=== PATIENT | male | born 1950 | race Caucasian/White ===

== ENCOUNTER 2017-07-06 18:22 | Inpatient (IN) | payer MEDICARE, SELFPAY ==
--- NOTE | 2017-07-03 14:02 | EKG12_ITS ---
Test Reason : PRE-OP Blood Pressure : / mmHG Vent. Rate : 135 BPM Atrial Rate : 135 BPM P-R Int : 120 ms QRS Dur : 072 ms QT Int : 308 ms P-R-T Axes : 018 029 018 degrees QTc Int : 462 ms Sinus tachycardia Otherwise normal ECG Confirmed by JENNIFER DE LEÓN ([id number]), assistant production editor RICHAR GONG ([id number]) on 07/07/2017 1:51:35 PM Referred By: Thomas Contrreas Confirmed By:JENNIFER DE LEÓN
[2017-07-06] VITALS (15 sets, daily range): BP systolic 113–171; BP diastolic 64–107; PULSE 106–118; RESP 15–20; TEMP 36.2–37.2; O2SAT 92–98; BMI 26.6
[2017-07-06 12:21] LABS: Prothrombin Time Fingerstick 16.7 SEC (11.9-14.4)
--- NOTE | 2017-07-06 13:35 | RAD_ITS ---
STUDY: X-RAY - LEFT WRIST REASON FOR EXAM: Male, 67 years old. Reduction of the comminuted fracture of the distal radial metaphysis. TECHNIQUE: 2 intraoperative view(s) of the wrist were obtained. COMPARISON: None. FINDINGS: 3 pins are seen transfixing the comminuted nondisplaced fracture of the distal radial metaphysis. There is good alignment. Avulsion fracture of the ulnar styloid. RAD/Wrist 2 Views IMPRESSION: Status post pinning of the comminuted distal radial fracture. There is good alignment. Electronically Signed: Omega Marie MD at 14:35 EST Tel [phone], Service support ,
[2017-07-06] MEDS: Cefazolin 1 GM/50 ML BAG IV (13:36)
--- NOTE | 2017-07-06 14:14 | PCM.DC.ORTHO ---
Discharge Diet: No Restrictions Discharge Activity: May Not Drive, May Shower - must cover to shower May shower in (days): 1 Ice area for (Minutes): 20 - Ice area for 20 minutes each hour while awake Keep extremity elevated above heart level: Operative Extremity, Left Arm Call your doctor if your incision/area has: Continuous Slow Oozing, Sudden Increased Bleeding, Increased Pain/ Swelling, Increased Redness, Foul Smelling Discharge Call your doctor if you observe: Fever of 101 or Higher, Coldness, Increased Pain, Numbness or Tingling, Change in Color Suture Line Care: Avoid Pulling/Pushing Cleanse incision/area with: Keep Dressing Clean & Dry Allergies/Adverse Reactions: Allergies No Known Allergies Allergy (Verified 07/03/17 11:24) Medications to take at Discharge Lisinopril 20 mg PO QHS 07/03/17 Lorazepam [Ativan] 0.5 mg PO DAILY 07/03/17 Metoprolol Tartrate 50 mg PO DAILY 07/03/17 Pantoprazole Sodium [Protonix] 20 mg PO DAILY 07/03/17 Paroxetine HCl 20 mg PO DAILY 07/03/17 Risperidone [Risperdal] 0.5 mg PO DAILY 07/03/17 Warfarin Sodium [Coumadin] 4 mg PO DAILY 07/03/17 Hydrocodone Bitart/Apap 5-325 [[place] 5/325] 1 - 2 tablet PO Q6H PRN PRN 7 Days #40 tablet 07/06/17 The following prescriptions were given: Hydrocodone Bitart/Apap 5-325 [[place] 5/325] 1 - 2 tablet PO Q6H PRN PRN 7 Days #40 tablet PRN Reason: Mild-Moderate (pain scale 1-5) Please Follow Up With: Thomas Contreras DO When: as scheduled
--- NOTE | 2017-07-06 14:18 | DCINST_ITS ---
Discharge Diet: No Restrictions Discharge Activity: May Not Drive, May Shower - must cover to shower May shower in (days): 1 Ice area for (Minutes): 20 - Ice area for 20 minutes each hour while awake Keep extremity elevated above heart level: Operative Extremity, Left Arm Call your doctor if your incision/area has: Continuous Slow Oozing, Sudden Increased Bleeding, Increased Pain/ Swelling, Increased Redness, Foul Smelling Discharge Call your doctor if you observe: Fever of 101 or Higher, Coldness, Increased Pain, Numbness or Tingling, Change in Color Suture Line Care: Avoid Pulling/Pushing Cleanse incision/area with: Keep Dressing Clean & Dry Allergies/Adverse Reactions: Allergies No Known Allergies Allergy (Verified 07/03/17 11:24) Medications to take at Discharge Lisinopril 20 mg PO QHS 07/03/17 Lorazepam [Ativan] 0.5 mg PO DAILY 07/03/17 Metoprolol Tartrate 50 mg PO DAILY 07/03/17 Pantoprazole Sodium [Protonix] 20 mg PO DAILY 07/03/17 Paroxetine HCl 20 mg PO DAILY 07/03/17 Risperidone [Risperdal] 0.5 mg PO DAILY 07/03/17 Warfarin Sodium [Coumadin] 4 mg PO DAILY 07/03/17 Hydrocodone Bitart/Apap 5-325 [[place] 5/325] 1 - 2 tablet PO Q6H PRN PRN 7 Days # 40 tablet 07/06/17 The following prescriptions were given: Hydrocodone Bitart/Apap 5-325 [[place] 5/325] 1 - 2 tablet PO Q6H PRN PRN 7 Days # 40 tablet PRN Reason: Mild-Moderate (pain scale 1-5) Please Follow Up With: Thomas Contreras DO When: as scheduled
--- NOTE | 2017-07-06 15:40 | CASEMGMT ---
Social Work Referral for possible correction placement/information. This social work coordinator meeting with patient and patient brotherRashaun and patient [id number], Moody Maciel in the hiv/aids care nurse. This social work coordinator introduced self as well as role within the [facility]. Patient giving this social work coordinator permission to speak with patient family. Patient family expressing concern on patient returning back home alone. Patient family reporting that patient has fallen several times within the past month. Patient family expressing concern of patient being able to meet own needs within the home as patient has not showered for a few weeks. Patient also expressing concern on returning back home. Patient reporting to be anxious about upcoming operation. Patient has been to the counseling center in the past per patient family for anxiety and schizohreniform diagnoses. Patient primary care physician is Dr. Machuca and patient has worked with social winnie Ramos at the [facility] in the past. Patient is currently on a waiting list at [facility] and has also looked into [facility] for possible placement. Patient and patient family open to this socia worker contacting Danette as [facility] to see what possible placement options there might be. This social work coordinator educating patient and family on Medicare criteria and that unless patient would have a 3 day stay patient will be transitioning to the correction under private pay. Patient and patient family aware of this and reporting that patient would be able to afford private pay for some time. This social work coordinator providing family with a list of private duty agencies and nursing homes within the [facility]. Patient has a lift alert and was getting ready to start Meals on Wheels. Patient brotherRashaun giving this social work coordinator a contact number of [phone] as the best number to call. Support given. Telephone call to Danette Castañeda. This social work coordinator making referral. Danette reporting to be aware of patient. This social work coordinator faxed face sheet and referred Danette to Rachel and Dr. Machuca for any further clinical information. Danette reporting that possible placement could happen within 3-4 days. This social work coordinator also giving Danette Rodney's contact information. Danette planning to contact Rashaun. This social work coordinator then following up with patient family on all above information and encouraged family to contact this social work coordinator back with any questions as Danette will be the main person to work with on placement. Patient family thanking this social work coordinator. Patient family planning to check in with patient within the community if placement does not happen today. PLAN: Possible discharge to community until placement is set up with [facility]. Isis BARRAZA, STOCKING INSPECTOR
--- NOTE | 2017-07-06 15:42 | EKG12_ITS ---
Test Reason : TACHY POST-OP Blood Pressure : / mmHG Vent. Rate : 111 BPM Atrial Rate : 111 BPM P-R Int : 124 ms QRS Dur : 074 ms QT Int : 344 ms P-R-T Axes : 030 038 011 degrees QTc Int : 467 ms Sinus tachycardia Otherwise normal ECG When compared with ECG of 03-JUL-2017 14:12, MANUAL COMPARISON REQUIRED, DATA IS UNCONFIRMED Confirmed by SONA MEJIA, JESSICA ([id number]), manager editorial RICHAR GONG ([id number]) on 07/08/2017 2:36:47 PM Referred By: Thomas Contreras Confirmed By:JESSICA MAGALLANES MD
[2017-07-06] MEDS: Lactated Ringers 1,000 ML 100 ML IV (17:06)
--- NOTE | 2017-07-06 17:35 | PCM.CONS.B ---
Problem List (1) HTN (hypertension) Status: Chronic (2) Fecal incontinence Status: Acute (3) Urine incontinence Status: Acute (4) History of venous thromboembolism Status: Chronic Comment: recurrent (5) Schizoaffective disorder Status: Chronic (6) GERD (gastroesophageal reflux disease) Status: Chronic (7) Hiatal hernia Status: Acute (8) Left wrist fracture Status: Acute (9) S/P ORIF (open reduction internal fixation) fracture Status: Acute (10) Leg weakness, bilateral Status: Acute - Consult Date of Consult: 07/06/[address] Contreras for medical management S/P ORIF of the R wrist PMH is significant for - HTN, GERD, DVT/PE (recurrent), schizoaffective disorder, hoarding, chronic anticoagulation with Warfarin for recurrent DVT's. 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 He has had a few falls recently but, denies syncope. He tells me that he does not have fecal or urinary urgency....he just does not realize he is going. Denies back pain or pain in the legs. No paresthesias of the legs. Does not use an assistive device at home. Denies vertigo, tinnitus, decreased hearing. He is apparently a hoarder and is unable to get around his house any longer and can not care for himself. He is afraid to stay in the house by himself. He has money stashed around the house in plastic bags and pockets and Pringles cans. Has been deteriorating recently at home per his brother and [id number]. alert and oriented X 3 and is drowsy due to anesthesia and pain medication The R cornea is cloudy Carotids have risk upstroke and good pulse volume with no carotid bruits There are no cervical nodes in the necks is flexible with no nuchal rigidity Lungs-clear to auscultation but diminished Heart-regular rate and rhythm, normal S1, normal S2, no murmur, no gallop, no rub Abdomen-soft, nontender, nondistended, normal bowel sounds present The skin over the lower extremities is very dry and the toenails are long and need attention The LUE is elevated and in a sling There is pitting edema of the RLE and a scar on the anterior medina about mid way between the knee and the ankle......has a hx of recurrent DVT's and has been off coumadin Non-focal neuro exam rectal was deferred until he is less groggy and better able to participate with the exam Impressions 1. Recent falls with no clear etiology. Tells me that he loses his balance, denies syncope. This is very concerning since he is only recently having bowel and bladder incontinence as well as loss of balance and he is not able to perform his ADL's. His brother has had to bathe him. Need to consider that he may have vertebral compression fractures, spinal cord dysfunction. 2. Fracture of the left wrist-status post ORIF by Dr. Contreras 07/06 3. Depression/schizoaffective disorder/anxiety-is followed at the counseling center 4. Chronic anticoagulation with warfarin for history of recurrent DVT/pulmonary emboli -has been off Coumadin for surgery today 5. Urinary and fecal incontinence associated with inability to get up out of a chair and take stairs -new 6. 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 GERD 8. Hypertension 9. Hoarding CBC, CMP, TSH, B12, ammonia, RPR, UA and urine culture. plain XRAYS of the LS spine and the pelvis Will need a CT or MRI of the LS spine......need to see the creat prior to ordering this testing PT/OT consults [facility] - he will require more than 2 nights to work up for etiology of the leg weakness and the incontinence Check a post void bladder residual Recheck lab in the AM CT brain with no contrast......mental status seems off and I do not know if we can contribute this entirely to anesthesia and pain medications Spent 45 minutes taking a history from the patient and his family and coordinating care. Code Visit Inpatient E&M: 20605 Subs Hosp L3
--- NOTE | 2017-07-06 17:38 | VDLE_ITS ---
Reason For Study: Hx of DVT - off Coumadin for surgery RIGHT LEFT GSV is normal. CFV is compressible, spontaneous, phasic, CFV is compressible, spontaneous, phasic, competent, and demonstrates normal competent and demonstrates normal augmentation. augmentation. FV is compressible, spontaneous, phasic, competent and demonstrates normal augmentation. POP V is compressible, spontaneous, phasic, competent and demonstrates normal augmentation. T/P Trunk is compressible. PTV is compressible. RT PerV is compressible. SSV is partially compressible with bright intraluminal echoes consistant with chronic clot. Procedure Exam performed portable in patient room. A preliminary report was called and/or faxed to [facility]. Interpretation Summary Deep veins of the right lower extremity are patent and compressible segmentally. There is no evidence of right lower extremity deep vein thrombosis. Valvular competence appears intact within the proximal deep venous system on the right . The right greater saphenous vein appears patent and compressible segmentally. Chronic venous changes are noted in the right small saphenous vein, which is partially compressible and demonstrates bright intraluminal echogenicity. Ordering Physician: Sujatha Huffman Referring Physician: Thomas Contreras Performed By: Lanie Silva RVT
--- NOTE | 2017-07-06 17:45 | CON.PCM_ITS ---
Problem List (1) HTN (hypertension) Status: Chronic (2) Fecal incontinence Status: Acute (3) Urine incontinence Status: Acute (4) History of venous thromboembolism Status: Chronic Comment: recurrent (5) Schizoaffective disorder Status: Chronic (6) GERD (gastroesophageal reflux disease) Status: Chronic (7) Hiatal hernia Status: Acute (8) Left wrist fracture Status: Acute (9) S/P ORIF (open reduction internal fixation) fracture Status: Acute (10) Leg weakness, bilateral Status: Acute - Consult Date of Consult: 07/06/[address] Contreras for medical management S/P ORIF of the R wrist PMH is significant for - HTN, GERD, DVT/PE (recurrent), schizoaffective disorder , hoarding, chronic anticoagulation with Warfarin for recurrent DVT's. 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 He has had a few falls recently but, denies syncope. He tells me that he does not have fecal or urinary urgency....he just does not realize he is going. Denies back pain or pain in the legs. No paresthesias of the legs. Does not use an assistive device at home. Denies vertigo, tinnitus, decreased hearing. He is apparently a hoarder and is unable to get around his house any longer and can not care for himself. He is afraid to stay in the house by himself. He has money stashed around the house in plastic bags and pockets and Pringles cans. Has been deteriorating recently at home per his brother and [id number]. alert and oriented X 3 and is drowsy due to anesthesia and pain medication The R cornea is cloudy Carotids have risk upstroke and good pulse volume with no carotid bruits There are no cervical nodes in the necks is flexible with no nuchal rigidity Lungs-clear to auscultation but diminished Heart-regular rate and rhythm, normal S1, normal S2, no murmur, no gallop, no rub Abdomen-soft, nontender, nondistended, normal bowel sounds present The skin over the lower extremities is very dry and the toenails are long and need attention The LUE is elevated and in a sling There is pitting edema of the RLE and a scar on the anterior medina about mid way between the knee and the ankle......has a hx of recurrent DVT's and has been off coumadin Non-focal neuro exam rectal was deferred until he is less groggy and better able to participate with the exam Impressions 1. Recent falls with no clear etiology. Tells me that he loses his balance, denies syncope. This is very concerning since he is only recently having bowel and bladder incontinence as well as loss of balance and he is not able to perform his ADL's. His brother has had to bathe him. Need to consider that he may have vertebral compression fractures, spinal cord dysfunction. 2. Fracture of the left wrist-status post ORIF by Dr. Contreras 07/06 3. Depression/schizoaffective disorder/anxiety-is followed at the counseling center 4. Chronic anticoagulation with warfarin for history of recurrent DVT/ pulmonary emboli -has been off Coumadin for surgery today 5. Urinary and fecal incontinence associated with inability to get up out of a chair and take stairs -new 6. 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 GERD 8. Hypertension 9. Hoarding CBC, CMP, TSH, B12, ammonia, RPR, UA and urine culture. plain XRAYS of the LS spine and the pelvis Will need a CT or MRI of the LS spine......need to see the creat prior to ordering this testing PT/OT consults Will need SNF [place] change the admission to inpt - he will require more than 2 nights to work up for etiology of the leg weakness and the incontinence Check a post void bladder residual Recheck lab in the AM CT brain with no contrast......mental status seems off and I do not know if we can contribute this entirely to anesthesia and pain medications Spent 45 minutes taking a history from the patient and his family and coordinating care. Code Visit Inpatient E&M: 61340 Subs Hosp L3
--- NOTE | 2017-07-06 17:56 | RAD_ITS ---
STUDY: X-RAY - PELVIS REASON FOR EXAM: Male, 67 years old. Fall TECHNIQUE: One view of the pelvis was obtained. COMPARISON: None. FINDINGS: There is a non-specific bowel gas pattern. Normal visualized soft tissue structures. Normal bilateral iliac wings, sacroiliac joints and visualized sacrum. Normal visualized bilateral superior and inferior pubic rami. Normal pubic symphysis. Normal ischial tuberosities. There are atherosclerotic vascular calcifications. There are osteoarthritic changes of the right femoral head with marginal osteophyte formation. There is osteoarthritic spur formation of the right acetabular rim. There is moderate articular joint space narrowing of the right hip. There are osteoarthritic changes of the left femoral head with marginal osteophyte formation. There is osteoarthritic spur formation of the left acetabular rim. There is severe articular joint space narrowing of the left hip. RAD/Pelvis 1 or 2 Views IMPRESSION: Degenerative findings of the hips. Electronically Signed: Rehan Ferrari MD at 21:07 EST , Service support ,
[2017-07-06 18:20] LABS: Absolute Lymphocyte Count 1.15 X10^3/ul (0.83-4.51); Basophil# 0.02 X10^3/uL; Basophil% 0.3 % (0-1); Eosinophil# 0.07 X10^3/uL; Hematocrit 45.1 % (40-54); Hemoglobin 15.1 g/dl (13.0-16.5); Lymphocyte # 1.15 X10^3/ul (4.0); Lymphocyte % 16.7 % (19-41); Mean Corp Hgb Conc 33.5 g/gl (32-36); Mean Corpuscular Hgb 30.1 pg (27.0-32.0); Mean Platelet Vol. 8.1 fl (6.2-12.0); Monocyte# 0.67 X10^3/uL; Monocyte% 9.7 % (0-10); Neutrophil # 4.97 X10^3/uL (2.7-7.7); Neutrophil % 72.2 % (47-70); Platelet Count 240 K/mm3 (150-450); RBC Distribution Width CV 14.3 % (11.6-14.6); RBC Distribution Width SD 46.2 fl (35.1-43.9); Red Blood Count 5.01 M/mm3 (4.6-6.2); White Blood Count 6.9 K/mm3 (4.4-11.0)
[2017-07-06 18:22] LABS: POSITIVE COUNT NO; POSITIVE DIFFERENTIAL NO; POSITIVE MORPHOLOGY NO
--- NOTE | 2017-07-06 18:25 | RAD_ITS ---
STUDY: X-RAY - LUMBAR SPINE REASON FOR EXAM: Male, 67 years old. Fall TECHNIQUE: 2 view(s) of the lumbar spine were obtained. COMPARISON: None FINDINGS: Normal lumbar lordosis. There is no substantial scoliosis. There is a normal alignment of the vertebrae. There is multilevel endplate spondylosis of the lumbar vertebrae. There is multi-level degenerative disc disease with multi-level disc space narrowing. There are atherosclerotic vascular calcifications. The soft tissue structures are unremarkable. RAD/Lumbar Spine 2 or 3 Views IMPRESSION: Degenerative changes of the spine, as detailed above. Electronically Signed: Rehan Ferrari MD at 21:05 EST , Service support ,
[2017-07-06 18:39] LABS: Vitamin B12 651 pg/mL (211-911)
[2017-07-06 18:40] LABS: ALB/GLOB Ratio 0.7 RATIO (0.9-2.4); AST(SGOT) 17 U/L (15-37); Alanine Aminotransfer ALT/SGPT 12 U/L (16-61); Albumin, Serum 2.8 g/dL (3.2-5.0); Alkaline Phosphatase 92 U/L (45-117); Anion Gap 7 (5-15); BUN 18 mg/dL (7-18); BUN/Creat Ratio 12.3 RATIO (10-20); Calcium,Total 7.8 mg/dL (8.5-10.1); Chloride 102 mmol/L (98-107); Creatinine, Serum 1.46 mg/dL (0.70-1.30); EST Glomerular Filtration Rate 51 mL/min (>60); Est Glom Filt Rate - Afr Amer 62 mL/min (>60); Estimated Creatinine Clearance 42.12 ml/min; Glucose 82 mg/dL (74-106); Potassium 4.6 mmol/L (3.5-5.1); Protein, Total 6.8 g/dL (6.4-8.2); Sodium Level 134 mmol/L (136-145); Thyroid Stim Hormone (TSH) 1.75 uIU/mL (0.358-3.74)
[2017-07-06] MEDS: Metoprolol Tartrate 50 MG Tablet PO (19:40)
--- NOTE | 2017-07-06 20:47 | CT_ITS ---
STUDY: CT BRAIN WITHOUT CONTRAST REASON FOR EXAM: Male, 67 years old. ALTERED MENTAL STATUS RADIATION DOSAGE (If Supplied By Facility): CTDIvol = ( 44.99 ) mGy, DLP = ( 1727.20 ) mGycm TECHNIQUE: Transaxial CT imaging of the brain was performed without administration of intravenous contrast material. COMPARISON: None. FINDINGS: Normal soft tissue structures. Normal calvarium. There are calcifications around the carotid artery. These are noted in the cavernous carotid arteries. There is mild cerebral atrophy with widening of the extra-axial spaces and ventricular dilatation. There are areas of decreased attenuation within the white matter tracts of the supratentorial brain, consistent with microvascular disease changes. Normal basal ganglia and thalami. Normal brainstem. There is mild cerebellar atrophy. There is no intracranial hemorrhage. There are no findings of an acute ischemic infarction. Normal visualized paranasal sinuses. CT/Brain/Head without Contrast IMPRESSION: Chronic involutional changes of the brain. There are no acute findings. Electronically Signed: Rehan Ferrari MD at 22:56 EST , Service support ,
[2017-07-06] MEDS: Heparin Injection 5,000 UNITS/ML Syringe 5000 UNITS SC (22:30)
[2017-07-06] MEDS: Nystatin Powder 15gm Bottle 1 APPLIC TOPICAL (22:31)
[2017-07-06] MEDS: Lisinopril 20 MG Tablet PO (22:32)
[2017-07-06 23:21] LABS: Bacteria 0 SEEN /hpf (None Seen); Mucous, Urine 0 SEEN /hpf (<or=2+); Red Blood Cells-Urine 0 SEEN /hpf (0-5)
[2017-07-06 23:32] LABS: Color, Urine Yellow (Yellow); Glucose, Dipstick Normal (Normal); Ketone-Dipstick 5 mg/dl (Negative); Leukocyte Esterase-Dipstick 500 /ul (Negative); Nitrite-Dipstick Negative (Negative); Occult Blood-Urine Negative /ul (Negative); Protein-Dipstick 15 mg/dl (Negative); Urine Bilirubin Dipstick Negative (Negative); Urine Clarity Clear (Clear); Urine Urobilinogen Normal (Normal)
[2017-07-07 00:28] LABS: Hyaline Cast 0-5 SEEN /lpf (0-5); Squamous Epithelial Cells - UA 0-5 SEEN /hpf (0-5); White Blood Cells 10-25 SEEN /hpf (0-5)
[2017-07-07] MEDS: 0.9% Normal Saline 1,000 ML 75 ML IV ×2 (02:40→14:33)
[2017-07-07 02:42] VITALS: BP 122/73; PULSE 81; RESP 16; TEMP 37.2; O2SAT 93
[2017-07-07] MEDS: Heparin Injection 5,000 UNITS/ML Syringe 5000 UNITS SC ×3 (06:24→20:39)
--- NOTE | 2017-07-07 06:54 | PCM.PN.BLA ---
Progress Note Subjective: Patient resting comfortably in bed. He has complaints of minimal discomfort. Patient denies any chest pain or shortness of breath Objective: Vital signs, temp 98.9 pulse 81 blood pressure 122/73 oxygen saturation 93 on room air Splint is intact and in place. Sensation is preserved. Assessment: Postop day 1 closed reduction with pinning of left distal radius Tachycardia Hypotension Plan: Patient appears to be doing much better in terms of his vital signs. His pain is reasonably controlled. I am going to discharge him home today with follow-up as previously planned. Patient has home-going instructions as well as pain medication that was previously sent to his pharmacy.
[2017-07-07 09:05] VITALS: BP 105/55; PULSE 80; PULSE 83; RESP 20; TEMP 36.8; O2SAT 91
[2017-07-07 09:20] VITALS: PULSE 83
[2017-07-07] MEDS: Pantoprazole Sodium 20 MG Tablet PO (09:20)
[2017-07-07] MEDS: Metoprolol Tartrate 50 MG Tablet PO (09:20)
[2017-07-07] MEDS: RisperiDONE 0.5 MG Tablet PO (09:21)
[2017-07-07] MEDS: Nystatin Powder 15gm Bottle 1 APPLIC TOPICAL ×2 (09:21→20:40)
--- NOTE | 2017-07-07 11:19 | CASEMGMT ---
Addendum entered by Isis Warren 07/07/17 11:23: Therapy notes faxed to [facility] as evaluations are now entered. Original Note: Social Work Meeting with patient in room as patient is now inpatient status. Patient reporting to still feel as if patient is unable to discharge home alone and is interested in placement to [facility]. Support given. This socia worker then speaking with Dr. Huffman. Dr. Huffman reporting that patient would benefit from medical management/oversight for a few days within the hospital and that patient may obtain a three day stay. Telephone call to patient family, Rashaun and Moody (brother and [id number]). Both are agreeable to above plan and are aware that [facility] will only be covered by Medicare if patient indeed has a 3 day stay. Support given. Telephone call to Danette at [facility]. This family welfare social work professor updating Danette on patient status on inpatient and then faxing clinical information. Pending therapy evaluation at this time. Will fax therapy notes when obtained. Will continue to follow. PLAN: Discharge to [facility] skilled pending a three day hospital stay. Isis BARRAZA, WELDING EQUIPMENT REPAIRER
--- NOTE | 2017-07-07 11:22 | PCM.OPRPT ---
Report of Operation Date of Procedure: 07/06/17 Pre-Operative Diagnosis: distal radius fracture left Post-Operative Diagnosis: same Surgery/Procedure Performed:: closed reduction with percutaneous pinning of left distal radius Description of Surgical Findings:: displaced distal radius fracture Type of Anesthesia:: General Anesthesiologist: Leonel Zarco Estimated Blood Loss (mL): 5 ml Fluids Replaced: see anesthesia report Description of Procedure: implants: 0.054 in k wire x3 procedure description: idalia was greeted in the pre-op area. His left wrist was marked with surgical marker. Pre-op abx were given and he was taken to OR suite 4 in a stable condition. After adequate anesthesia was obtained and airway was secured his arm was prepped and draped. Surgical timeout was performed. Under fluoro imaging an closed reduction was performed and the fracture alignment was improved with ligamentotaxis. With this held in a redued fashion 2 kwires were placed in the radial styloid follwoed by a 3rd pin in the dorsal lip of the radius secured in the volar cortex. Improcved alignment was obtained. The wires were then bent and trimmed at the skin. A well padded volar splint was applied. He was taken to PACU in stable condtion. - Complications none - Admit VTE Documentation VTE Present on Admission: No VTE Mechan Device Prophylaxis: None Reason prophylaxis not ordered:: Procedure Not Indicated
[2017-07-07 14:38] VITALS: BP 123/70; PULSE 74; RESP 18; TEMP 37.1; O2SAT 95
[2017-07-07] MEDS: HYDROcodone Bitartrate/Apap 5/325 Tablet PO (14:54)
--- NOTE | 2017-07-07 15:31 | CHAPLAIN ---
Type of Pastoral Visit _x__ Initial Visit ___ Follow-up Visit ___ On-call Visit ___ General Patient Visit ___ Spiritual Assessment ___ Family Conference ___ Bereavement ___ Rapid Response ___ Code Blue ___ Other (describe below) Pastoral Care Referral From _x__ Patient ___ Family ___ Nurse ___ Physician ___ Audio Visual Manager ___ Landscape Architect ___ Other (describe below) Sacrament/Intervention _x__ Active listening ___ Anointing ___ Methodist ___ Bereavement ___ Communion ___ Loyda exploration ___ _x__ Life review _x__ Prayer ___ Reconciliation ___ Sacrament of Sick _x__ Supportive presence ___ Wedding ___ Other (describe below) Pastoral Comments
[2017-07-07 20:21] VITALS: BP 119/74; PULSE 75; RESP 16; TEMP 36.6; O2SAT 95
--- NOTE | 2017-07-07 20:23 | PCM.PROGNOTE ---
Patient Problems: Active and Suspected Problems Fecal incontinence (Acute) Urine incontinence (Acute) Hiatal hernia (Acute) Left wrist fracture (Acute) S/P ORIF (open reduction internal fixation) fracture (Acute) Leg weakness, bilateral (Acute) Subjective: Afebrile with stable vital signs. Pulse ox is 95% on room air. All lab was personally reviewed. Sodium was mildly decreased at 134 and the creatinine is 1.46 with a BUN of 18. LFTs are unremarkable. The albumin is mildly decreased at 2.8. B12 and TSH are within normal limits. UA had 10-25 WBCs but no bacteria. There were 0-5 hyaline casts. Urine culture is pending. CT brain showed cortical atrophy with no acute findings. LS spine x-ray showed degenerative changes of the spine multiple levels. There was no substantial scoliosis. Pelvic x-ray showed no fracture. He has been to the BR to urinate today but he has urgency and he does not feel as though he is completely emptying his bladder. He denies dysuria. He ambulated 200 ft with PT today but is still having balance issues because the LUE is in a sling.....PT and OT notes reviewed. - Physical Exam General: Alert, Cooperative, No apparent distress, - - He is pleasant and appropriate and has been interavctive with staff HEENT: Atraumatic, - - r eye is cloudy and bulges somewhat Oral: Moist Mucosa, No Gingival or Mucosal Lesions/ Ulcerations Neck: Supple Lungs: Clear to auscultation, Diminished Cardiovascular: Regular rate, Regular Rhythm, Normal S1, Normal S2, No Gallop Abdomen: Bowel Sounds Present, Soft, Non Tender, Non-Distended Extremities: Edema - of the left hand and fingers Skin: No rashes, No breakdown Psych/Mental Status: Appropriate Vital Signs Temp Pulse Resp BP Pulse Ox 97.8 F 75 16 119/74 95 07/07/17 20:21 07/07/17 20:21 07/07/17 20:21 07/07/17 20:21 07/07/17 20:21 Oxygen Flow Rate 2 Oxygen Delivery Method Room Air Weight: 160 lb 4.417 oz Body Mass Index (BMI) 26.6 Intake and Output for Last 24 Hours 07/05/17 07/06/17 07/07/17 23:59 23:59 23:59 Intake Total 2205 / 2205 2720 / 2720 Output Total 550 / 550 Balance 2204 / 2204 2170 / 2170 Laboratory Tests Past 24 Hrs 07/06/17 22:29 Urine Color Yellow Urine Clarity Clear Urine pH 5.0 Ur Specific [place] 1.020 Urine Protein 15 H Urine Glucose (UA) Normal Urine Ketones 5 H Urine Occult Blood Negative Urine Nitrite Negative Urine Bilirubin Negative Urine Urobilinogen Normal Ur Leukocyte Esterase 500 H Urine RBC 0 SEEN Urine WBC 10-25 SEEN Ur Squamous Epith Cells 0-5 SEEN Urine Bacteria 0 SEEN Hyaline Casts 0-5 SEEN Urine Mucus 0 SEEN Assessment/Plan Active and Suspected Problems Fecal incontinence (Acute) Urine incontinence (Acute) Hiatal hernia (Acute) Left wrist fracture (Acute) S/P ORIF (open reduction internal fixation) fracture (Acute) Leg weakness, bilateral (Acute) Impressions 1. Recent falls with no clear etiology. Tells me that he loses his balance, denies syncope. This is very concerning since he is only recently having bowel and bladder incontinence as well as loss of balance and he is not able to perform his ADL's. His brother has had to bathe him. Need to consider that he may have vertebral compression fractures, spinal cord dysfunction. Will obtain a post void residual and if it is > 200 will get an MRI of the LS spine to r/o neurogenic bladder due to cord compression 2. Fracture of the left wrist-status post ORIF by Dr. Contreras 07/06 3. Depression/schizoaffective disorder/anxiety-is followed at the counseling center 4. Chronic anticoagulation with warfarin for history of recurrent DVT/pulmonary emboli -has been off Coumadin for surgery today 5. Urinary and fecal incontinence associated with inability to get up out of a chair and take stairs -new 6. 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 GERD 8. Hypertension 9. Hoarding 10. elevated creat Restart Warfarin.....no need to bridge at this time Check a post void residual recheck a BMP and CBC in the AM continue PT/OT. His house is so cluttered there is no room for him to walk safely. His brother and [id number] are working and cleaning out his house. He will be accepted at [facility] when he is ready for [place]. I think he will benefit greatly from being with other people and having someone to talk with. he has been isolating in his house and not getting out or even moving around much. he is deconditioned and has had multiple falls recently continue Heparin for DVT prophylaxis for now Code Visit Inpatient E&M: 08260 Subs Hosp L2
[2017-07-07 20:24] VITALS: PULSE 75; RESP 16; O2SAT 95
--- NOTE | 2017-07-07 20:34 | PN_ITS ---
Patient Problems: Active and Suspected Problems Fecal incontinence (Acute) Urine incontinence (Acute) Hiatal hernia (Acute) Left wrist fracture (Acute) S/P ORIF (open reduction internal fixation) fracture (Acute) Leg weakness, bilateral (Acute) Subjective: Afebrile with stable vital signs. Pulse ox is 95% on room air. All lab was personally reviewed. Sodium was mildly decreased at 134 and the creatinine is 1.46 with a BUN of 18. LFTs are unremarkable. The albumin is mildly decreased at 2.8. B12 and TSH are within normal limits. UA had 10-25 WBCs but no bacteria. There were 0-5 hyaline casts. Urine culture is pending. CT brain showed cortical atrophy with no acute findings. LS spine x-ray showed degenerative changes of the spine multiple levels. There was no substantial scoliosis. Pelvic x-ray showed no fracture. He has been to the BR to urinate today but he has urgency and he does not feel as though he is completely emptying his bladder. He denies dysuria. He ambulated 200 ft with PT today but is still having balance issues because the LUE is in a sling.....PT and OT notes reviewed. - Physical Exam General: Alert, Cooperative, No apparent distress, - - He is pleasant and appropriate and has been interavctive with staff HEENT: Atraumatic, - - r eye is cloudy and bulges somewhat Oral: Moist Mucosa, No Gingival or Mucosal Lesions/ Ulcerations Neck: Supple Lungs: Clear to auscultation, Diminished Cardiovascular: Regular rate, Regular Rhythm, Normal S1, Normal S2, No Gallop Abdomen: Bowel Sounds Present, Soft, Non Tender, Non-Distended Extremities: Edema - of the left hand and fingers Skin: No rashes, No breakdown Psych/Mental Status: Appropriate Vital Signs Temp Pulse Resp BP Pulse Ox 97.8 F 75 16 119/74 95 07/07/17 20:21 07/07/17 20:21 07/07/17 20:21 07/07/17 20:21 07/07/17 20:21 Oxygen Flow Rate 2 Oxygen Delivery Method Room Air Weight: 160 lb 4.417 oz Body Mass Index (BMI) 26.6 Intake and Output for Last 24 Hours 07/05/17 07/06/17 07/07/17 23:59 23:59 23:59 Intake Total 2205 / 2205 2720 / 2720 Output Total 550 / 550 Balance 2204 / 2204 2170 / 2170 Laboratory Tests Past 24 Hrs 07/06/17 22:29 Urine Color Yellow Urine Clarity Clear Urine pH 5.0 Ur Specific [place] 1.020 Urine Protein 15 H Urine Glucose (UA) Normal Urine Ketones 5 H Urine Occult Blood Negative Urine Nitrite Negative Urine Bilirubin Negative Urine Urobilinogen Normal Ur Leukocyte Esterase 500 H Urine RBC 0 SEEN Urine WBC 10-25 SEEN Ur Squamous Epith Cells 0-5 SEEN Urine Bacteria 0 SEEN Hyaline Casts 0-5 SEEN Urine Mucus 0 SEEN Assessment/Plan Active and Suspected Problems Fecal incontinence (Acute) Urine incontinence (Acute) Hiatal hernia (Acute) Left wrist fracture (Acute) S/P ORIF (open reduction internal fixation) fracture (Acute) Leg weakness, bilateral (Acute) Impressions 1. Recent falls with no clear etiology. Tells me that he loses his balance, denies syncope. This is very concerning since he is only recently having bowel and bladder incontinence as well as loss of balance and he is not able to perform his ADL's. His brother has had to bathe him. Need to consider that he may have vertebral compression fractures, spinal cord dysfunction. Will obtain a post void residual and if it is > 200 will get an MRI of the LS spine to r/o neurogenic bladder due to cord compression 2. Fracture of the left wrist-status post ORIF by Dr. Contreras 07/06 3. Depression/schizoaffective disorder/anxiety-is followed at the counseling center 4. Chronic anticoagulation with warfarin for history of recurrent DVT/ pulmonary emboli -has been off Coumadin for surgery today 5. Urinary and fecal incontinence associated with inability to get up out of a chair and take stairs -new 6. 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 GERD 8. Hypertension 9. Hoarding 10. elevated creat Restart Warfarin.....no need to bridge at this time Check a post void residual recheck a BMP and CBC in the AM continue PT/OT. His house is so cluttered there is no room for him to walk safely. His brother and [id number] are working and cleaning out his house. He will be accepted at [facility] when he is ready for [place]. I think he will benefit greatly from being with other people and having someone to talk with. he has been isolating in his house and not getting out or even moving around much. he is deconditioned and has had multiple falls recently continue Heparin for DVT prophylaxis for now Code Visit Inpatient E&M: 74545 Subs Hosp L2
[2017-07-07] MEDS: Lisinopril 20 MG Tablet PO (20:39)
[2017-07-07] MEDS: Tamsulosin HCl 0.4 MG Capsule PO (21:00)
[2017-07-08] VITALS (11 sets, daily range): BP systolic 134–169; BP diastolic 80–104; PULSE 70–90; RESP 18; TEMP 36.6–37.2; O2SAT 94–99
[2017-07-08] MEDS: Heparin Injection 5,000 UNITS/ML Syringe 5000 UNITS SC ×3 (06:08→22:27)
[2017-07-08 06:48] LABS: Hematocrit 40.9 % (40-54); Hemoglobin 13.5 g/dl (13.0-16.5); Mean Corpuscular Hgb 30.1 pg (27.0-32.0); Mean Corpuscular Volume 91.1 fL (80-94); Mean Platelet Vol. 8.6 fl (6.2-12.0); Platelet Count 202 K/mm3 (150-450); RBC Distribution Width CV 13.9 % (11.6-14.6); RBC Distribution Width SD 45.5 fl (35.1-43.9); Red Blood Count 4.49 M/mm3 (4.6-6.2); White Blood Count 4.4 K/mm3 (4.4-11.0)
[2017-07-08 06:56] LABS: Scan Indicated on CBC? Y/N NO
[2017-07-08 07:19] LABS: Anion Gap 7 (5-15); BUN 18 mg/dL (7-18); Calcium,Total 7.9 mg/dL (8.5-10.1); Chloride 102 mmol/L (98-107); Creatinine, Serum 1.29 mg/dL (0.70-1.30); EST Glomerular Filtration Rate 59 mL/min (>60); Est Glom Filt Rate - Afr Amer 71 mL/min (>60); Estimated Creatinine Clearance 47.67 ml/min; Glucose 86 mg/dL (74-106); PSA,Total - Annual Screen 3.07 ng/mL (0.00-4.00); Potassium 4.2 mmol/L (3.5-5.1); Sodium Level 136 mmol/L (136-145)
[2017-07-08] MEDS: Nystatin Powder 15gm Bottle 1 APPLIC TOPICAL ×2 (08:49→22:26)
[2017-07-08] MEDS: Metoprolol Tartrate 50 MG Tablet PO (08:49)
[2017-07-08] MEDS: RisperiDONE 0.5 MG Tablet PO (08:50)
[2017-07-08] MEDS: Pantoprazole Sodium 20 MG Tablet PO (08:50)
--- NOTE | 2017-07-08 08:59 | PCM.PN.ORT ---
Patient Problems: Active and Suspected Problems Fecal incontinence (Acute) Urine incontinence (Acute) Hiatal hernia (Acute) Left wrist fracture (Acute) S/P ORIF (open reduction internal fixation) fracture (Acute) Leg weakness, bilateral (Acute) Subjective: Patient resting comfortably in bed today. He has been out of bed with therapy. He complains of dizziness at times. Objective: Splint is clean and dry and in place. Neurovascularly intact. Capillary refills less than 2 seconds - Physical Exam Vital Signs Temp Pulse Resp BP Pulse Ox 98.3 F 77 18 147/93 H 97 07/08/17 08:45 07/08/17 08:49 07/08/17 08:45 07/08/17 08:45 07/08/17 08:45 Oxygen Flow Rate 2 Oxygen Delivery Method Room Air Weight: 160 lb 4.417 oz Body Mass Index (BMI) 26.6 Intake and Output for Last 24 Hours 07/06/17 07/07/17 07/08/17 23:59 23:59 23:59 Intake Total 2205 / 2205 2720 / 2720 727 / 727 Output Total 750 / 750 1075 / 1075 Balance 2205 / 2205 1969 / 1969 -348 / -348 Laboratory Tests Past 24 Hrs 07/08/17 07/08/17 06:24 06:24 WBC 4.4 RBC 4.49 L Hgb 13.5 Hct 40.9 MCV 91.1 MCH 30.1 MCHC 33.0 RDW 13.9 RDW Differential 45.5 H Plt Count 202 MPV 8.6 Sodium 136 Potassium 4.2 Chloride 102 Carbon Dioxide 27.0 Anion Gap 7 BUN 18 Creatinine 1.29 Estim Creat Clear Calc 47.67 Est GFR (MDRD) Af Amer 71 Est GFR (MDRD) Non-Af 59 L BUN/Creatinine Ratio 14.0 Glucose 86 Calcium 7.9 L PSA Screen 3.07 Assessment/Plan Active and Suspected Problems Fecal incontinence (Acute) Urine incontinence (Acute) Hiatal hernia (Acute) Left wrist fracture (Acute) S/P ORIF (open reduction internal fixation) fracture (Acute) Leg weakness, bilateral (Acute) Postop day 2 closed reduction and percutaneous pin fixation of left distal radius Spondylosis lumbar spine Osteoarthritis bilateral hips I personally reviewed patient's x-rays of the lumbar spine. This reveals degenerative changes consistent with spondylosis. Also reviewed the pelvis x-ray which reveals osteoarthritic changes noted of both hip joints. Appreciate the assistance of the hospitalist as apparently patient is having some incontinence issues as well as continued dizziness and loss of balance issues. I certainly feel that it is prudent to work this up in order to determine whether or not there is a musculoskeletal or neurologic issue contributing to these. Patient is stable in terms of the wrist fracture. I will defer to the hospitalist in terms of when they feel that patient would be safe for discharge. It appears that the patient will be going to senior living facility which I certainly feel is appropriate given his multiple medical issues and comorbidities
--- NOTE | 2017-07-08 09:03 | PN.ORTHO_ITS ---
Patient Problems: Active and Suspected Problems Fecal incontinence (Acute) Urine incontinence (Acute) Hiatal hernia (Acute) Left wrist fracture (Acute) S/P ORIF (open reduction internal fixation) fracture (Acute) Leg weakness, bilateral (Acute) Subjective: Patient resting comfortably in bed today. He has been out of bed with therapy. He complains of dizziness at times. Objective: Splint is clean and dry and in place. Neurovascularly intact. Capillary refills less than 2 seconds - Physical Exam Vital Signs Temp Pulse Resp BP Pulse Ox 98.3 F 77 18 147/93 H 97 07/08/17 08:45 07/08/17 08:49 07/08/17 08:45 07/08/17 08:45 07/08/17 08:45 Oxygen Flow Rate 2 Oxygen Delivery Method Room Air Weight: 160 lb 4.417 oz Body Mass Index (BMI) 26.6 Intake and Output for Last 24 Hours 07/06/17 07/07/17 07/08/17 23:59 23:59 23:59 Intake Total 2205 / 2205 2720 / 2720 727 / 727 Output Total 750 / 750 1075 / 1075 Balance 2205 / 2205 1969 / 1969 -348 / -348 Laboratory Tests Past 24 Hrs 07/08/17 07/08/17 06:24 06:24 WBC 4.4 RBC 4.49 L Hgb 13.5 Hct 40.9 MCV 91.1 MCH 30.1 MCHC 33.0 RDW 13.9 RDW Differential 45.5 H Plt Count 202 MPV 8.6 Sodium 136 Potassium 4.2 Chloride 102 Carbon Dioxide 27.0 Anion Gap 7 BUN 18 Creatinine 1.29 Estim Creat Clear Calc 47.67 Est GFR (MDRD) Af Amer 71 Est GFR (MDRD) Non-Af 59 L BUN/Creatinine Ratio 14.0 Glucose 86 Calcium 7.9 L PSA Screen 3.07 Assessment/Plan Active and Suspected Problems Fecal incontinence (Acute) Urine incontinence (Acute) Hiatal hernia (Acute) Left wrist fracture (Acute) S/P ORIF (open reduction internal fixation) fracture (Acute) Leg weakness, bilateral (Acute) Postop day 2 closed reduction and percutaneous pin fixation of left distal radius Spondylosis lumbar spine Osteoarthritis bilateral hips I personally reviewed patient's x-rays of the lumbar spine. This reveals degenerative changes consistent with spondylosis. Also reviewed the pelvis x- ray which reveals osteoarthritic changes noted of both hip joints. Appreciate the assistance of the hospitalist as apparently patient is having some incontinence issues as well as continued dizziness and loss of balance issues. I certainly feel that it is prudent to work this up in order to determine whether or not there is a musculoskeletal or neurologic issue contributing to these. Patient is stable in terms of the wrist fracture. I will defer to the hospitalist in terms of when they feel that patient would be safe for discharge. It appears that the patient will be going to halfway facility which I certainly feel is appropriate given his multiple medical issues and comorbidities
--- NOTE | 2017-07-08 13:59 | MRI_ITS ---
STUDY: MRI LUMBAR SPINE WITHOUT CONTRAST REASON FOR EXAM: Male, 67 years old. The patient is experiencing urinary/fecal incontinence with leg weakness. Evaluate for cord compression. TECHNIQUE: Standardized fat and water weighted pulse sequences were obtained in the sagittal and axial planes. COMPARISON: X-RAY LUMBAR SPINE-July 06, 2017 FINDINGS: T12-L1: (Imaged only in the sagittal plane). There is disc desiccation, mild loss of the disc height anteriorly with anterior endplate spondylosis and minimal posterior annular bulging. Normal central canal and intervertebral neural foramina. There is an abundance of CSF surrounding the lower thoracic cord without impingement. There is an exaggerated lumbar lordosis. There is no substantial scoliosis. Normal conus medullaris that terminates at the superior endplate of the L2 vertebra. L1-2: There is disc desiccation, preservation disc height with prominent anterior endplate spondylotic spur formation. There is minimal annular bulging. Normal central canal and intervertebral neural foramina. L2-3: There is disc desiccation, preservation disc height without disc displacement. Normal central canal with widely patent intervertebral neural foramina. L3-4: There is disc desiccation, mild loss of the disc height posteriorly, anterior endplate spondylosis with a large central canal widely patent intervertebral neural foramina. L4-5: There is disc desiccation, mild loss of the disc height posteriorly with posterior annular bulging. There is mild anterior endplate spondylosis. This mild facet arthrosis. Normal central canal and intervertebral neural foramina. L5-S1: There is disc desiccation, moderate loss of the disc height posteriorly with a small posterior central disc protrusion (axial T2 series 5, image 3). The disc protrusion measures approximately 3 x 11 mm (AP X transverse), producing minimal thecal sac flattening but without radicular impingement. There is a large central canal with large bilateral intervertebral neural foramina. There is a 13 mm vertebral body hemangioma (sagittal T2 series 2, image 8). Normal visualized sacral ala. Normal visualized paraspinous soft tissue structures. MRI/Spine Lumbar (Routine) IMPRESSION: 1. Exaggerated lumbar lordosis. 2. Multilevel degenerative disc disease and endplate spondylosis. 3. Large central canal all levels without thoracic cord impingement. 4. L5-S1 small posterior disc protrusion producing minimal thecal sac flattening without radicular impingement. 5. T11 vertebral body hemangioma. Electronically Signed: Ronny Mclean DO at 15:25 EST Tel , Service support ,
[2017-07-08] MEDS: Tamsulosin HCl 0.4 MG Capsule PO (17:19)
--- NOTE | 2017-07-08 20:40 | PN_ITS ---
Subjective: Afebrile, vital signs are stable. He is 97% saturated on room air. Creatinine has improved and is 1.29 today, down from 1.46 on 226. CBC is unremarkable. PSA is normal at 3.07. Post void residuals are all less than 200. MRI of the spine shows multilevel degenerative disc disease and endplate spondylosis. There is a large central canal at all levels without cord compression. There is a small posterior disc protrusion at L5-S1 producing minimal thecal sac flattening with no radicular impingement. Etiology of the urine incontinence is unclear. Reviewed the CTB and he has some ventricular dilatation but not out of line with his age......ambulated without an AD today? - Physical Exam General: Alert, Oriented x3, Cooperative HEENT: Atraumatic Oral: Moist Mucosa Neck: Supple Lungs: Clear to auscultation, Diminished Cardiovascular: Regular rate, Regular Rhythm, Normal S1, Normal S2, No Gallop Abdomen: Bowel Sounds Present, Soft, Non Tender, Non-Distended Extremities: No cyanosis, No edema, No Calf Tenderness, - - he has good feeling in the fingers of the Left hand....they are still fairly swollen Skin: No rashes, No breakdown Psych/Mental Status: Appropriate Vital Signs Temp Pulse Resp BP Pulse Ox 98.0 F 73 18 144/81 H 97 07/08/17 16:17 07/08/17 16:17 07/08/17 16:17 07/08/17 16:17 07/08/17 16:17 Oxygen Flow Rate 2 Oxygen Delivery Method Room Air Weight: 160 lb 4.417 oz Body Mass Index (BMI) 26.6 Intake and Output for Last 24 Hours 07/06/17 07/07/17 07/08/17 23:59 23:59 23:59 Intake Total 2205 / 2205 2720 / 2720 727 / 727 Output Total 750 / 750 1075 / 1075 Balance 2205 / 2205 1969 / 1969 -348 / -348 Laboratory Tests Past 24 Hrs 07/08/17 07/08/17 06:24 06:24 WBC 4.4 RBC 4.49 L Hgb 13.5 Hct 40.9 MCV 91.1 MCH 30.1 MCHC 33.0 RDW 13.9 RDW Differential 45.5 H Plt Count 202 MPV 8.6 Sodium 136 Potassium 4.2 Chloride 102 Carbon Dioxide 27.0 Anion Gap 7 BUN 18 Creatinine 1.29 Estim Creat Clear Calc 47.67 Est GFR (MDRD) Af Amer 71 Est GFR (MDRD) Non-Af 59 L BUN/Creatinine Ratio 14.0 Glucose 86 Calcium 7.9 L PSA Screen 3.07 Assessment/Plan Impressions 1. Recent falls with no clear etiology. Tells me that he loses his balance, denies syncope. This is very concerning since he is only recently having bowel and bladder incontinence as well as loss of balance and he is not able to perform his ADL's. His brother has had to bathe him. Need to consider that he may have vertebral compression fractures, spinal cord dysfunction. Will obtain a post void residual and if it is > 200 will get an MRI of the LS spine to r/o neurogenic bladder due to cord compression 2. Fracture of the left wrist-status post ORIF by Dr. Contreras 07/06 3. Depression/schizoaffective disorder/anxiety-is followed at the counseling center 4. Chronic anticoagulation with warfarin for history of recurrent DVT/ pulmonary emboli -has been off Coumadin for surgery today 5. Urinary and fecal incontinence associated with inability to get up out of a chair and take stairs -new 6. 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 GERD 8. Hypertension 9. Hoarding 10. elevated creat post void residuals are all less than 150 reason for the urinary urgency is not clear. await the results of the MRI of the spine......Will treat for BPH. Code Visit Inpatient E&M: [id number] Subs Hosp L2
[2017-07-08] MEDS: Menthol/Lanolin/Calamine/Znox 113 GM Tube 1 APPLIC TOPICAL (22:26)
[2017-07-08] MEDS: Lisinopril 20 MG Tablet PO (22:27)
[2017-07-09] VITALS (7 sets, daily range): BP systolic 80–182; BP diastolic 46–96; PULSE 84–87; RESP 16–18; TEMP 36.5–37.1; O2SAT 94–97
[2017-07-09] MEDS: Heparin Injection 5,000 UNITS/ML Syringe 5000 UNITS SC (05:57)
[2017-07-09 06:36] LABS: International Normalized Ratio 1.2; Prothrombin Time (Protime)PT. 15.1 SECONDS (11.7-14.9)
[2017-07-09 07:09] LABS: Partial Thromboplast Time 120.6 Seconds (24.1-36.2)
[2017-07-09] MEDS: Metoprolol Tartrate 50 MG Tablet PO (07:38)
[2017-07-09] MEDS: Pantoprazole Sodium 20 MG Tablet PO (07:39)
[2017-07-09] MEDS: RisperiDONE 0.5 MG Tablet PO (07:39)
[2017-07-09] MEDS: Menthol/Lanolin/Calamine/Znox 113 GM Tube 1 APPLIC TOPICAL (07:40)
[2017-07-09] MEDS: Nystatin Powder 15gm Bottle 1 APPLIC TOPICAL (07:40)
--- NOTE | 2017-07-09 09:05 | PCM.PN.ORT ---
Patient Problems: Active and Suspected Problems Fecal incontinence (Acute) Urine incontinence (Acute) Hiatal hernia (Acute) Left wrist fracture (Acute) S/P ORIF (open reduction internal fixation) fracture (Acute) Leg weakness, bilateral (Acute) Subjective: The patient was sitting in bed upon examination. Patient denies any chest pain, shortness of breath, dizziness, lightheadedness, nausea or vomiting. Pain is controlled on medications. No adverse overnight events. Plan for the patient is for discharge to residential facility, patient plans on going to [facility] in [place]. Medicine has been consulted for medical comorbidities. Objective: Splint and dressing are clean and intact without any breakthrough bleeding Positive swelling to fingers No pain on left elbow, full range of motion left elbow Sensation intact to axillary, radial, median, and ulnar distribution Motor intact to AIN, PIN, and ulnar nerve - Physical Exam Vital Signs Temp Pulse Resp BP Pulse Ox 98.1 F 87 16 182/96 H 97 07/09/17 07:29 07/09/17 07:38 07/09/17 07:29 07/09/17 07:29 07/09/17 07:29 Oxygen Flow Rate 2 Oxygen Delivery Method Room Air Weight: 72.7 kg Body Mass Index (BMI) 26.6 Intake and Output for Last 24 Hours 07/07/17 07/08/17 07/09/17 23:59 23:59 23:59 Intake Total 2720 / 2720 727 / 727 520 / 520 Output Total 750 / 750 1075 / 1075 150 / 150 Balance 1970 / 1970 -348 / -348 370 / 370 Laboratory Tests Past 24 Hrs 07/09/17 06:18 PT 15.1 H INR 1.2 APTT 120.6 H* Assessment/Plan Active and Suspected Problems Fecal incontinence (Acute) Urine incontinence (Acute) Hiatal hernia (Acute) Left wrist fracture (Acute) S/P ORIF (open reduction internal fixation) fracture (Acute) Leg weakness, bilateral (Acute) 1. S/P closed reduction with percutaneous pinning left distal radius POD #3 2. Continue Pain Medications: Go 3. DVT Prophylaxis: Patient is currently back on his warfarin due to history of blood clot and pulmonary embolism 4. PT/OT: Nonweightbearing left upper extremity, ice and elevation 5. Continue postoperative medical management per medicine: Okay for discharge when medically cleared 6. Encouraged Incentive Spirometry 7. Disposition: Orthopedically stable, plan will be for possible discharge to residential facility today if medically cleared. Prescription has been attached to chart. Patient is to follow-up with Dr. Contreras on July 14, 2017 at 3:30 PM.
--- NOTE | 2017-07-09 09:16 | PN.ORTHO_ITS ---
Patient Problems: Active and Suspected Problems Fecal incontinence (Acute) Urine incontinence (Acute) Hiatal hernia (Acute) Left wrist fracture (Acute) S/P ORIF (open reduction internal fixation) fracture (Acute) Leg weakness, bilateral (Acute) Subjective: The patient was sitting in bed upon examination. Patient denies any chest pain , shortness of breath, dizziness, lightheadedness, nausea or vomiting. Pain is controlled on medications. No adverse overnight events. Plan for the patient is for discharge to alf facility, patient plans on going to [facility] in [place]. Medicine has been consulted for medical comorbidities. Objective: Splint and dressing are clean and intact without any breakthrough bleeding Positive swelling to fingers No pain on left elbow, full range of motion left elbow Sensation intact to axillary, radial, median, and ulnar distribution Motor intact to AIN, PIN, and ulnar nerve - Physical Exam Vital Signs Temp Pulse Resp BP Pulse Ox 98.1 F 87 16 182/96 H 97 07/09/17 07:29 07/09/17 07:38 07/09/17 07:29 07/09/17 07:29 07/09/17 07:29 Oxygen Flow Rate 2 Oxygen Delivery Method Room Air Weight: 72.7 kg Body Mass Index (BMI) 26.6 Intake and Output for Last 24 Hours 07/07/17 07/08/17 07/09/17 23:59 23:59 23:59 Intake Total 2720 / 2720 727 / 727 520 / 520 Output Total 750 / 750 1075 / 1075 150 / 150 Balance 1970 / 1970 -348 / -348 370 / 370 Laboratory Tests Past 24 Hrs 07/09/17 06:18 PT 15.1 H INR 1.2 APTT 120.6 H* Assessment/Plan Active and Suspected Problems Fecal incontinence (Acute) Urine incontinence (Acute) Hiatal hernia (Acute) Left wrist fracture (Acute) S/P ORIF (open reduction internal fixation) fracture (Acute) Leg weakness, bilateral (Acute) 1. S/P closed reduction with percutaneous pinning left distal radius POD #3 2. Continue Pain Medications: Go 3. DVT Prophylaxis: Patient is currently back on his warfarin due to history of blood clot and pulmonary embolism 4. PT/OT: Nonweightbearing left upper extremity, ice and elevation 5. Continue postoperative medical management per medicine: Okay for discharge when medically cleared 6. Encouraged Incentive Spirometry 7. Disposition: Orthopedically stable, plan will be for possible discharge to alf facility today if medically cleared. Prescription has been attached to chart. Patient is to follow-up with Dr. Contreras on July 14, 2017 at 3:30 PM.
--- NOTE | 2017-07-09 10:45 | CASEMGMT ---
Social Work Note Pt still not up from stress test. SW to return to confirm discharge plan. Alyse Chase, RESEARCH QUALITY ASSURANCE SPECIALIST, PROTECTIVE SIGNAL REPAIRER HELPER
--- NOTE | 2017-07-09 10:56 | CASEMGMT ---
Social Work Note Placed call to Kervin Petersen, at [facility], to update that SW anticipated discharge this date, but need physician to determine if pt was medically stable prior to discharge. Ortho has cleared. SW to continue to follow and assist with discharge planning. [facility] Alyse Chase, TECH ED TEACHER, ZOOLOGY TECHNICAL OFFICER
--- NOTE | 2017-07-09 12:53 | TREXTCAR_ITS ---
- Diet 07/06/17 17:07 Diet: Regular Diet Is pt able to select menu?: Yes - Routine Orders/Code Status Enema Type: Fleetz Enema Frequency: Daily PRN Suppository Type: Dulcolax 10mg Suppository Frequency: Daily PRN Routine Lab Work: INR - QOdaily until the INR is > 2 and then Weekly X 4 - Wound(s) LEFT WRIST Wound Type: Surgical Incision Dressing Change: FABRICIO LEFT KNEE Wound Type: Abrasion - Therapies Extremity Affected:: Left Upper Physical Therapy: Eval and Treat Occupational Therapy: Eval and Treat - Problem/Diagnosis (1) HTN (hypertension) Status: Chronic Current Visit: Yes (2) Fecal incontinence Status: Chronic Current Visit: Yes (3) Urine incontinence Status: Chronic Current Visit: Yes (4) History of venous thromboembolism Status: Chronic Comment: recurrent. On intermediate Coumadin Current Visit: Yes (5) Schizoaffective disorder Status: Chronic Current Visit: Yes (6) GERD (gastroesophageal reflux disease) Status: Chronic Current Visit: Yes (7) Hiatal hernia Status: Chronic Current Visit: Yes (8) Left wrist fracture Status: Acute Current Visit: Yes (9) S/P ORIF (open reduction internal fixation) fracture Status: Acute Current Visit: Yes (10) Leg weakness, bilateral Status: Acute Current Visit: Yes (11) Thrombophlebitis of superficial veins of right lower extremity Status: Acute Current Visit: Yes - Allergies/Procedures Done in Hospital Allergies/Adverse Reactions: Allergies No Known Allergies Allergy (Verified 07/03/17 11:24) Procedures: None - Type of Care/Length of Stay Estimated LOS: Convalescent Care Less Than 30 days Type of Care Needed: Skilled Rehab Potential: Good Prognosis: Good - Additional Orders/Day of Discharge Day of Discharge: 07/09/17 - Follow Up Care Primary Care Physician: Rahul Machuca MD [Primary Care Provider] - Please follow up with your Primary Care Physician in: 1 month Please Follow Up With: Thomas Contreras DO When: as scheduled
--- NOTE | 2017-07-09 13:02 | PCM.DC.SUM ---
Discharge Date and Diagnosis Date of Admission: 07/06/17 Date of Discharge: 07/09/17 - Primary Discharge Diagnosis Active and Suspected Problems Left wrist fracture (Acute) S/P ORIF (open reduction internal fixation) fracture (Acute) Leg weakness, bilateral (Acute) Thrombophlebitis of superficial veins of right lower extremity (Acute) -Small saphenous Vein on the right - Secondary Discharge Diagnosis Chronic Problems HTN (hypertension) (Chronic) Fecal incontinence (Chronic) - intermittent Urine incontinence (Chronic) - urge History of venous thromboembolism (Chronic) recurrent. On half-way anticoagulation Schizoaffective disorder (Chronic) GERD (gastroesophageal reflux disease) (Chronic) Hiatal hernia (Chronic) Hospital Course and Treatment Imaging Results: Clinical Impression(s) from Imaging Studies Wrist X-Ray 07/06/17 13:35 IMPRESSION: Status post pinning of the comminuted distal radial fracture. There is good alignment. Electronically Signed: Omega Marie MD at 14:35 EST Tel [phone], Service support , Pelvis X-Ray 07/06/17 17:56 IMPRESSION: Degenerative findings of the hips. Electronically Signed: Rehan Ferrari MD at 21:07 EST , Service support , Lumbar Spine X-Ray 07/06/17 18:25 IMPRESSION: Degenerative changes of the spine, as detailed above. Electronically Signed: Rehan Ferrari MD at 21:05 EST , Service support , Brain CT 07/06/17 20:47 IMPRESSION: Chronic involutional changes of the brain. There are no acute findings. Electronically Signed: Rehan Ferrari MD at 22:56 EST , Service support , Lumbar Spine MRI 07/08/17 13:59 IMPRESSION: 1. Exaggerated lumbar lordosis. 2. Multilevel degenerative disc disease and endplate spondylosis. 3. Large central canal all levels without thoracic cord impingement. 4. L5-S1 small posterior disc protrusion producing minimal thecal sac flattening without radicular impingement. 5. T11 vertebral body hemangioma. Electronically Signed: Ronny Mclean DO at 15:25 EST Tel , Service support , Laboratory Tests 07/06/17 07/06/17 07/06/17 12:14 18:05 18:05 WBC 6.9 RBC 5.01 Hgb 15.1 Hct 45.1 MCV 90.0 MCH 30.1 MCHC 33.5 RDW 14.3 RDW Differential 46.2 H Plt Count 240 MPV 8.1 Immature Gran % (Auto) 0.100 Neut % (Auto) 72.2 H Lymph % (Auto) 16.7 L Long % (Auto) 9.7 Eos % (Auto) 1.0 Baso % (Auto) 0.3 Absolute Neuts (auto) 5.0 Absolute Lymphs (auto) 1.15 Total Counted Not Reportable POC PT 16.7 H PT INR 1.40 APTT Sodium 134 L Potassium 4.6 Chloride 102 Carbon Dioxide 25.0 Anion Gap 7 BUN 18 Creatinine 1.46 H Estim Creat Clear Calc 42.12 Est GFR (MDRD) Af Amer 62 Est GFR (MDRD) Non-Af 51 L BUN/Creatinine Ratio 12.3 Glucose 82 Calcium 7.8 L Total Bilirubin 0.90 AST 17 ALT 12 L Alkaline Phosphatase 92 Ammonia Total Protein 6.8 Albumin 2.8 L Globulin 4.0 Albumin/Globulin Ratio 0.7 L PSA Screen Vitamin B12 TSH 1.75 Urine Color Urine Clarity Urine pH Ur Specific [place] Urine Protein Urine Glucose (UA) Urine Ketones Urine Occult Blood Urine Nitrite Urine Bilirubin Urine Urobilinogen Ur Leukocyte Esterase Urine RBC Urine WBC Ur Squamous Epith Cells Urine Bacteria Hyaline Casts Urine Mucus 07/06/17 07/06/17 07/06/17 18:05 18:05 22:29 WBC RBC Hgb Hct MCV MCH MCHC RDW RDW Differential Plt Count MPV Immature Gran % (Auto) Neut % (Auto) Lymph % (Auto) Long % (Auto) Eos % (Auto) Baso % (Auto) Absolute Neuts (auto) Absolute Lymphs (auto) Total Counted POC PT PT INR APTT Sodium Potassium Chloride Carbon Dioxide Anion Gap BUN Creatinine Estim Creat Clear Calc Est GFR (MDRD) Af Amer Est GFR (MDRD) Non-Af BUN/Creatinine Ratio Glucose Calcium Total Bilirubin AST ALT Alkaline Phosphatase Ammonia 14.0 Total Protein Albumin Globulin Albumin/Globulin Ratio PSA Screen Vitamin B12 651 TSH Urine Color Yellow Urine Clarity Clear Urine pH 5.0 Ur Specific [place] 1.020 Urine Protein 15 H Urine Glucose (UA) Normal Urine Ketones 5 H Urine Occult Blood Negative Urine Nitrite Negative Urine Bilirubin Negative Urine Urobilinogen Normal Ur Leukocyte Esterase 500 H Urine RBC 0 SEEN Urine WBC 10-25 SEEN Ur Squamous Epith Cells 0-5 SEEN Urine Bacteria 0 SEEN Hyaline Casts 0-5 SEEN Urine Mucus 0 SEEN 07/08/17 07/08/17 07/09/17 06:24 06:24 06:18 WBC 4.4 RBC 4.49 L Hgb 13.5 Hct 40.9 MCV 91.1 MCH 30.1 MCHC 33.0 RDW 13.9 RDW Differential 45.5 H Plt Count 202 MPV 8.6 Immature Gran % (Auto) Neut % (Auto) Lymph % (Auto) Long % (Auto) Eos % (Auto) Baso % (Auto) Absolute Neuts (auto) Absolute Lymphs (auto) Total Counted POC PT PT 15.1 H INR 1.2 APTT 120.6 H* Sodium 136 Potassium 4.2 Chloride 102 Carbon Dioxide 27.0 Anion Gap 7 BUN 18 Creatinine 1.29 Estim Creat Clear Calc 47.67 Est GFR (MDRD) Af Amer 71 Est GFR (MDRD) Non-Af 59 L BUN/Creatinine Ratio 14.0 Glucose 86 Calcium 7.9 L Total Bilirubin AST ALT Alkaline Phosphatase Ammonia Total Protein Albumin Globulin Albumin/Globulin Ratio PSA Screen 3.07 Vitamin B12 TSH Urine Color Urine Clarity Urine pH Ur Specific [place] Urine Protein Urine Glucose (UA) Urine Ketones Urine Occult Blood Urine Nitrite Urine Bilirubin Urine Urobilinogen Ur Leukocyte Esterase Urine RBC Urine WBC Ur Squamous Epith Cells Urine Bacteria Hyaline Casts Urine Mucus Microbiology 07/06/17 22:25 Urine, Clean Catch Urine Culture - Final Culture exhibits no growth. Dr. Sujatha Huffman - Hospitalist Dr. Thomas Contreras - [facility] Operations: - - ORIF left distal radius fracture on 11/03/[address] 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 Post operatively he was admitted to the hospital for pain control and hospitalist service was consulted for medical management. His family reported that he had recently become incontinenet of urine and stool and he was unable to ambulate due to weakness in his legs. He lives alone and apparently he is a hoarder and his appt has limited room for him to get around. He has been ill kempt and has not been keeping himself clean. He denied back pain of pain in his legs. He told me that sometimes he does not know he is moving his bowels or emptying his bladder. He related that he is afraid to stay by himself at home any longer. Post void residuals were done and there was no significant residual. He does know when he had to defecate and was able to go to the toilet when he had assistance. He was able to ambulate with PT and was ambulating 200 ft without an assistive device prior to DC. An MRI of the LS spine was ordered due to the persistent urinary incontinence and showed exaggerated lumbar lordosis, multilevel degenerative disc disease and endplate spondylosis, no thoracic cord impingement and no lumbar cord impingement. At L5-S1 there was a small posterior disc protrusion producing minimal thecal sac flattening with no radicular impingement. LS spine XRAYS showed degenerative changes with no lytic lesions. CTB showed chronic involutional changes with no acute findings. There was microvascular disease present. He was discharged on 07/09/17 to [facility] for continued PT/OT. He was started on tx for BPH to see if this helps with the urinary incontinence. If it does not may consider a referral to urology. A PSA was normal. The left UE still has some swelling in the fingers but pain is well controlled. He had been restarted on Warfarin and PT/INR's will be followed at the [facility]. He is to have no weight bearing on the LUE and he will follow up with Dr. Contreras in the office on July 14 at 3:30 PM. This note was generated with Dragon dictation software. It may contain incorrect words, spelling, and punctuation that were not noted in checking the note before signing. Discharge Diet: No Restrictions Discharge Activity: May Not Drive, May Shower - must cover to shower May shower in (days): 1 Ice area for (Minutes): 20 - Ice area for 20 minutes each hour while awake Keep extremity elevated above heart level: Operative Extremity, Left Arm Call your doctor if your incision/area has: Continuous Slow Oozing, Sudden Increased Bleeding, Increased Pain/ Swelling, Increased Redness, Foul Smelling Discharge Call your doctor if you observe: Fever of 101 or Higher, Coldness, Increased Pain, Numbness or Tingling, Change in Color Suture Line Care: Avoid Pulling/Pushing Cleanse incision/area with: Keep Dressing Clean & Dry Home Medications: Medications to take at Discharge Lisinopril 20 mg PO QHS 07/03/17 Pantoprazole Sodium [Protonix] 20 mg PO DAILY 07/03/17 Paroxetine HCl 20 mg PO DAILY 07/03/17 Risperidone [Risperdal] 0.5 mg PO DAILY 07/03/17 Hydrocodone Bitart/Apap 5-325 [[place] 5/325] 1 - 2 tab PO Q6H PRN PRN 7 Days #40 tab 07/06/17 Apixaban [Eliquis] 5 mg PO BID #1 tab 07/09/17 Lorazepam [Ativan] 0.5 mg PO DAILY 7 Days #7 tab 07/09/17 Menthol/Lanolin/Calamine/Znox [Calmoseptine Ointment] 1 applic TOPICAL BID tube 07/09/17 Metoprolol Tartrate 25 mg PO BID #1 tablet 07/09/17 Nystatin Powder [Mycostatin Powder] 1 applic TOPICAL BID bottle 07/09/17 Tamsulosin HCl [Flomax] 0.4 mg PO DAILY@1730 capsule 07/09/17 Following Prescrptions Were Given to Patient: Hydrocodone Bitart/Apap 5-325 [[place] 5/325] 1 - 2 tab PO Q6H PRN PRN 7 Days #40 tab PRN Reason: Mild-Moderate (pain scale 1-5) Lorazepam [Ativan] 0.5 mg PO DAILY 7 Days #7 tab Apixaban [Eliquis] 5 mg PO BID #1 tab Metoprolol Tartrate 25 mg PO BID #1 tablet Primary Care Physician: Rahul Machuca MD [Primary Care Provider] - Please follow up with your Primary Care Physician in: 1 month Please Follow Up With: Thomas Contreras DO When: as scheduled Disposition: Long Term facility Minutes spent on discharge:: 40 Patient Condition:: Stable Meaningful Use Info Meaningful Use Diagnoses (Choose all that apply): None applicable Code Visit Inpatient E&M: 71881 Disch Hosp
--- NOTE | 2017-07-09 13:14 | DS.PCM_ITS ---
Discharge Date and Diagnosis Date of Admission: 07/06/17 Date of Discharge: 07/09/17 - Primary Discharge Diagnosis Active and Suspected Problems Left wrist fracture (Acute) S/P ORIF (open reduction internal fixation) fracture (Acute) Leg weakness, bilateral (Acute) Thrombophlebitis of superficial veins of right lower extremity (Acute) -Small saphenous Vein on the right - Secondary Discharge Diagnosis Chronic Problems HTN (hypertension) (Chronic) Fecal incontinence (Chronic) - intermittent Urine incontinence (Chronic) - urge History of venous thromboembolism (Chronic) recurrent. On alf anticoagulation Schizoaffective disorder (Chronic) GERD (gastroesophageal reflux disease) (Chronic) Hiatal hernia (Chronic) Hospital Course and Treatment Imaging Results: Clinical Impression(s) from Imaging Studies Wrist X-Ray 07/06/17 13:35 IMPRESSION: Status post pinning of the comminuted distal radial fracture. There is good alignment. Electronically Signed: Omega Marie MD at 14:35 EST Tel [phone], Service support , Pelvis X-Ray 07/06/17 17:56 IMPRESSION: Degenerative findings of the hips. Electronically Signed: Rehan Ferrari MD at 21:07 EST , Service support , Lumbar Spine X-Ray 07/06/17 18:25 IMPRESSION: Degenerative changes of the spine, as detailed above. Electronically Signed: Rehan Ferrari MD at 21:05 EST , Service support , Brain CT 07/06/17 20:47 IMPRESSION: Chronic involutional changes of the brain. There are no acute findings. Electronically Signed: Rehan Ferrari MD at 22:56 EST , Service support , Lumbar Spine MRI 07/08/17 13:59 IMPRESSION: 1. Exaggerated lumbar lordosis. 2. Multilevel degenerative disc disease and endplate spondylosis. 3. Large central canal all levels without thoracic cord impingement. 4. L5-S1 small posterior disc protrusion producing minimal thecal sac flattening without radicular impingement. 5. T11 vertebral body hemangioma. Electronically Signed: Ronny Mclean DO at 15:25 EST Tel , Service support , Laboratory Tests 07/06/17 07/06/17 07/06/17 12:14 18:05 18:05 WBC 6.9 RBC 5.01 Hgb 15.1 Hct 45.1 MCV 90.0 MCH 30.1 MCHC 33.5 RDW 14.3 RDW Differential 46.2 H Plt Count 240 MPV 8.1 Immature Gran % (Auto) 0.100 Neut % (Auto) 72.2 H Lymph % (Auto) 16.7 L [place] % (Auto) 9.7 Eos % (Auto) 1.0 Baso % (Auto) 0.3 Absolute Neuts (auto) 5.0 Absolute Lymphs (auto) 1.15 Total Counted Not Reportable POC PT 16.7 H PT INR 1.40 APTT Sodium 134 L Potassium 4.6 Chloride 102 Carbon Dioxide 25.0 Anion Gap 7 BUN 18 Creatinine 1.46 H Estim Creat Clear Calc 42.12 Est GFR (MDRD) Af Amer 62 Est GFR (MDRD) Non-Af 51 L BUN/Creatinine Ratio 12.3 Glucose 82 Calcium 7.8 L Total Bilirubin 0.90 AST 17 ALT 12 L Alkaline Phosphatase 92 Ammonia Total Protein 6.8 Albumin 2.8 L Globulin 4.0 Albumin/Globulin Ratio 0.7 L PSA Screen Vitamin B12 TSH 1.75 Urine Color Urine Clarity Urine pH Ur Specific [place] Urine Protein Urine Glucose (UA) Urine Ketones Urine Occult Blood Urine Nitrite Urine Bilirubin Urine Urobilinogen Ur Leukocyte Esterase Urine RBC Urine WBC Ur Squamous Epith Cells Urine Bacteria Hyaline Casts Urine Mucus 07/06/17 07/06/17 07/06/17 18:05 18:05 22:29 WBC RBC Hgb Hct MCV MCH MCHC RDW RDW Differential Plt Count MPV Immature Gran % (Auto) Neut % (Auto) Lymph % (Auto) [place] % (Auto) Eos % (Auto) Baso % (Auto) Absolute Neuts (auto) Absolute Lymphs (auto) Total Counted POC PT PT INR APTT Sodium Potassium Chloride Carbon Dioxide Anion Gap BUN Creatinine Estim Creat Clear Calc Est GFR (MDRD) Af Amer Est GFR (MDRD) Non-Af BUN/Creatinine Ratio Glucose Calcium Total Bilirubin AST ALT Alkaline Phosphatase Ammonia 14.0 Total Protein Albumin Globulin Albumin/Globulin Ratio PSA Screen Vitamin B12 651 TSH Urine Color Yellow Urine Clarity Clear Urine pH 5.0 Ur Specific [place] 1.020 Urine Protein 15 H Urine Glucose (UA) Normal Urine Ketones 5 H Urine Occult Blood Negative Urine Nitrite Negative Urine Bilirubin Negative Urine Urobilinogen Normal Ur Leukocyte Esterase 500 H Urine RBC 0 SEEN Urine WBC 10-25 SEEN Ur Squamous Epith Cells 0-5 SEEN Urine Bacteria 0 SEEN Hyaline Casts 0-5 SEEN Urine Mucus 0 SEEN 07/08/17 07/08/17 07/09/17 06:24 06:24 06:18 WBC 4.4 RBC 4.49 L Hgb 13.5 Hct 40.9 MCV 91.1 MCH 30.1 MCHC 33.0 RDW 13.9 RDW Differential 45.5 H Plt Count 202 MPV 8.6 Immature Gran % (Auto) Neut % (Auto) Lymph % (Auto) [place] % (Auto) Eos % (Auto) Baso % (Auto) Absolute Neuts (auto) Absolute Lymphs (auto) Total Counted POC PT PT 15.1 H INR 1.2 APTT 120.6 H* Sodium 136 Potassium 4.2 Chloride 102 Carbon Dioxide 27.0 Anion Gap 7 BUN 18 Creatinine 1.29 Estim Creat Clear Calc 47.67 Est GFR (MDRD) Af Amer 71 Est GFR (MDRD) Non-Af 59 L BUN/Creatinine Ratio 14.0 Glucose 86 Calcium 7.9 L Total Bilirubin AST ALT Alkaline Phosphatase Ammonia Total Protein Albumin Globulin Albumin/Globulin Ratio PSA Screen 3.07 Vitamin B12 TSH Urine Color Urine Clarity Urine pH Ur Specific [place] Urine Protein Urine Glucose (UA) Urine Ketones Urine Occult Blood Urine Nitrite Urine Bilirubin Urine Urobilinogen Ur Leukocyte Esterase Urine RBC Urine WBC Ur Squamous Epith Cells Urine Bacteria Hyaline Casts Urine Mucus Microbiology 07/06/17 22:25 Urine, Clean Catch Urine Culture - Final Culture exhibits no growth. Dr. Sujatha Huffman - Hospitalist Dr. Thomas Contreras - [facility] Operations: - - ORIF left distal radius fracture on 11/03/[address] 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 Post operatively he was admitted to the hospital for pain control and hospitalist service was consulted for medical management. His family reported that he had recently become incontinenet of urine and stool and he was unable to ambulate due to weakness in his legs. He lives alone and apparently he is a hoarder and his appt has limited room for him to get around. He has been ill kempt and has not been keeping himself clean. He denied back pain of pain in his legs. He told me that sometimes he does not know he is moving his bowels or emptying his bladder. He related that he is afraid to stay by himself at home any longer. Post void residuals were done and there was no significant residual. He does know when he had to defecate and was able to go to the toilet when he had assistance. He was able to ambulate with PT and was ambulating 200 ft without an assistive device prior to DC. An MRI of the LS spine was ordered due to the persistent urinary incontinence and showed exaggerated lumbar lordosis, multilevel degenerative disc disease and endplate spondylosis, no thoracic cord impingement and no lumbar cord impingement. At L5 -S1 there was a small posterior disc protrusion producing minimal thecal sac flattening with no radicular impingement. LS spine XRAYS showed degenerative changes with no lytic lesions. CTB showed chronic involutional changes with no acute findings. There was microvascular disease present. He was discharged on 07/09/17 to [facility] for continued PT/OT. He was started on tx for BPH to see if this helps with the urinary incontinence. If it does not may consider a referral to urology. A PSA was normal. The left UE still has some swelling in the fingers but pain is well controlled. He had been restarted on Warfarin and PT/INR's will be followed at the . He is to have no weight bearing on the LUE and he will follow up with Dr. Contreras in the office on July 14 at 3:30 PM. This note was generated with Dragon dictation software. It may contain incorrect words, spelling, and punctuation that were not noted in checking the note before signing. Discharge Diet: No Restrictions Discharge Activity: May Not Drive, May Shower - must cover to shower May shower in (days): 1 Ice area for (Minutes): 20 - Ice area for 20 minutes each hour while awake Keep extremity elevated above heart level: Operative Extremity, Left Arm Call your doctor if your incision/area has: Continuous Slow Oozing, Sudden Increased Bleeding, Increased Pain/ Swelling, Increased Redness, Foul Smelling Discharge Call your doctor if you observe: Fever of 101 or Higher, Coldness, Increased Pain, Numbness or Tingling, Change in Color Suture Line Care: Avoid Pulling/Pushing Cleanse incision/area with: Keep Dressing Clean & Dry Home Medications: Medications to take at Discharge Lisinopril 20 mg PO QHS 07/03/17 Pantoprazole Sodium [Protonix] 20 mg PO DAILY 07/03/17 Paroxetine HCl 20 mg PO DAILY 07/03/17 Risperidone [Risperdal] 0.5 mg PO DAILY 07/03/17 Hydrocodone Bitart/Apap 5-325 [[place] 5/325] 1 - 2 tab PO Q6H PRN PRN 7 Days #40 tab 07/06/17 Apixaban [Eliquis] 5 mg PO BID #1 tab 07/09/17 Lorazepam [Ativan] 0.5 mg PO DAILY 7 Days #7 tab 07/09/17 Menthol/Lanolin/Calamine/Znox [Calmoseptine Ointment] 1 applic TOPICAL BID tube 07/09/17 Metoprolol Tartrate 25 mg PO BID #1 tablet 07/09/17 Nystatin Powder [Mycostatin Powder] 1 applic TOPICAL BID bottle 07/09/17 Tamsulosin HCl [Flomax] 0.4 mg PO DAILY@1730 capsule 07/09/17 Following Prescrptions Were Given to Patient: Hydrocodone Bitart/Apap 5-325 [[place] 5/325] 1 - 2 tab PO Q6H PRN PRN 7 Days #40 tab PRN Reason: Mild-Moderate (pain scale 1-5) Lorazepam [Ativan] 0.5 mg PO DAILY 7 Days #7 tab Apixaban [Eliquis] 5 mg PO BID #1 tab Metoprolol Tartrate 25 mg PO BID #1 tablet Primary Care Physician: Rahul Machuca MD [Primary Care Provider] - Please follow up with your Primary Care Physician in: 1 month Please Follow Up With: Thomas Contreras DO When: as scheduled Disposition: Custodial facility Minutes spent on discharge:: 40 Patient Condition:: Stable Meaningful Use Info Meaningful Use Diagnoses (Choose all that apply): None applicable Code Visit Inpatient E&M: 13043 Disch Hosp
--- NOTE | 2017-07-09 13:23 | CASEMGMT ---
Social Work Note PAS/RR completed and submitted in the [facility]. Copies on chart and SNF packet. Transfer summary, medlist and scripts faxed to SNF. Copies on chart and originals in SNF packet. Pt's sister in law, Moody, to transport and will be at the hospital to transport around [id number]. Plan: [facility] for rehabilitation. PAS/RR submitted in the [facility]. Transported by family. Alyse Chase, K[employer]TLE CLE[employer]ER, SUCTION ROLLER
[2017-07-10 02:54] LABS: Rapid Plasmin Reagin (RPR) NONREACTIVE (NONREACTIVE)
== END 2017-07-09 15:36 | DRG 512 ==
LOC: SDC 07-07 03:47 → MS3 07-07 03:50
PROVIDERS: Admitting Provider Internal Medicine; Family Provider Family Medicine; PCP Family Medicine; Visit Provider Orthopaedic Surgery
PROC: 0PSJ34Z Reposition Left Radius with Internal Fixation Device, Percutaneous Approach (ICD-10-PCS; principal; 2017-07-06 13:20)
DX: S52.572A Other intraarticular fracture of lower end of left radius, initial encounter for closed fracture (principal); F25.9 Schizoaffective disorder, unspecified; S52.612A Displaced fracture of left ulna styloid process, initial encounter for closed fracture; I80.01 Phlebitis and thrombophlebitis of superficial vessels of right lower extremity; R53.1 Weakness; W19.XXXA Unspecified fall, initial encounter; Y92.9 Unspecified place or not applicable; I10 Essential (primary) hypertension; K21.9 Gastro-esophageal reflux disease without esophagitis; R15.9 Full incontinence of feces; R32 Unspecified urinary incontinence; Z86.718 Personal history of other venous thrombosis and embolism; K44.9 Diaphragmatic hernia without obstruction or gangrene; Z79.01 Long term (current) use of anticoagulants; M47.816 Spondylosis without myelopathy or radiculopathy, lumbar region; M40.56 Lordosis, unspecified, lumbar region; H18.50 Unspecified hereditary corneal dystrophies; R29.6 Repeated falls; F42.3 Hoarding disorder; R42 Dizziness and giddiness; M16.0 Bilateral primary osteoarthritis of hip; M51.27 Other intervertebral disc displacement, lumbosacral region
CPT/HCPCS: 36415; 36416; 70450; 72100; 72148; 72170; 73100; 76000; 80048; 80053; 81001; 82140; 82607; 84153; 84443; 85025; 85027; 85610; 85730; 86592; 87086; 93005; 93971; 97110; 97116; 97162; 97166; 97530; J7030; J7120; G0103; J2405

== ENCOUNTER 2020-07-24 14:51 | Emergency (ER) | payer MEDICARE, MEDICAID, SELFPAY ==
[2020-07-24 14:51] VITALS: BP 134/92; PULSE 96; RESP 20; TEMP 36.1; O2SAT 93; BMI 33.0
--- NOTE | 2020-07-24 14:57 | CT_ITS ---
STUDY: CT BRAIN WITHOUT CONTRAST REASON FOR EXAM: Male, 70 years old. Head injury RADIATION DOSAGE (If Supplied By Facility): CTDIvol = ( 44.99 ) mGy, DLP = ( 880.47 ) mGycm TECHNIQUE: Transaxial CT imaging of the brain was performed without administration of intravenous contrast material. Individualized dose optimization techniques were used for this CT. COMPARISON: No relevant priors. FINDINGS: Normal soft tissue structures. Normal calvarium. There is mild cerebral atrophy with widening of the extra-axial spaces and ventricular dilatation. There are areas of decreased attenuation within the white matter tracts of the supratentorial brain, consistent with microvascular disease changes. Normal basal ganglia and thalami. Normal brainstem. Normal cerebellum. There is no intracranial hemorrhage. There are no findings of an acute ischemic infarction. Atherosclerotic calcification of the vertebral arteries and cavernous portions of the internal carotid arteries bilaterally. Normal visualized paranasal sinuses. CT/Brain/Head without Contrast IMPRESSION: Chronic involutional changes of the brain. Electronically Signed: Omega Marie MD at 15:52 EDT , Service support ,
--- NOTE | 2020-07-24 14:58 | EKG12_ITS ---
Test Reason : FALL Blood Pressure : / mmHG Vent. Rate : 096 BPM Atrial Rate : 096 BPM P-R Int : 158 ms QRS Dur : 076 ms QT Int : 356 ms P-R-T Axes : 010 050 033 degrees QTc Int : 449 ms Normal sinus rhythm Normal ECG Confirmed by SONA MEJIA, JESSICA ([id number]), web editor TORITO WATERMAN ([id number]) on 07/26/2020 12:56:26 PM Referred By: JASPREET Confirmed By:JESSICA MAGALLANES MD
--- NOTE | 2020-07-24 14:59 | CT_ITS ---
STUDY: CT LUMBAR SPINE WITHOUT CONTRAST REASON FOR EXAM: Male, 70 years old. Trauma RADIATION DOSAGE (If Supplied By Facility): CTDIvol = ( 26.19 ) mGy, DLP = ( 915.76 ) mGycm TECHNIQUE: The patient was scanned in a multi detector CT scanner. High resolution transaxial imaging was performed. Images were obtained from L1 to S1 vertebral level. Sagittal and coronal images were reconstructed. Individualized dose optimization techniques were used for this CT. COMPARISON: None FINDINGS: Normal lumbar lordosis. There is no substantial scoliosis. Normal vertebrae of the lumbar spine. L1-2: Mild degree of disc space narrowing and spondylosis. L2-3: Mild degree of disc space narrowing. Spondylosis. L3-4: Mild degree of disc space narrowing and spondylosis. No evidence of spinal stenosis. L4-5: Mild degree of disc space narrowing and spondylosis. Facet joint osteoarthritis. No evidence of spinal stenosis. L5-S1: Moderate degree of disc space narrowing. Spondylosis. Facet joint osteoarthritis. Atherosclerotic calcification of the abdominal aorta. CT/Spine Lumbar without Contrast IMPRESSION: Multilevel degenerative changes, as described above. Electronically Signed: Omega Marie MD at 15:54 EDT , Service support ,
--- NOTE | 2020-07-24 15:00 | ED.DCSUM_ITS ---
History of Present Illness Chief Complaint: Fall Informant: Patient Narrative: 70-year-old male with extensive past medical history including COPD, dementia, hypertension presents from local nursing facility after fall yesterday and today. Fell backwards both times. Cannot provide accurate history of present illness. Staff concerned that he may have had seizure-like activity when rolling over today. Patient in no acute distress does say he has some mild to moderate back pain. States it is aching. Worse with movement. Denies any numbness or tingling. Past Medical History - Allergies and Home Meds Allergies/Adverse Reactions: Allergies No Known Allergies Allergy (Verified 07/24/20 15:00) Primary Care Physician: Rahul Machuca MD [Primary Care Provider] - Prior records reviewed: Yes Past Medical History: - - COPD, dementia, hypertension Surgical History: noncontributory Lives: Alf Smoking Status: Never smoker Alcohol: None Drugs: None Review of Systems General: Denies: Chills, Fever, Sweats Eyes: Denies: Visual changes - bilaterally, Diplopia ENT: Denies: Rhinorrhea, Sore throat Cardiovascular: Denies: Chest pain, Palpitations Respiratory: Denies: Dyspnea, Cough, Dyspnea on exertion Gastrointestinal: Denies: Abdominal pain, Nausea, Vomiting, Diarrhea, Melena, Hematochezia Genitourinary: Denies: Dysuria, Hematuria, Frequency Musculoskeletal: Reports: Back pain. Denies: Extremity Pain Skin: Denies: Rash, Wounds Neurological: Denies: Headache, Weakness, Numbness Physical Exam Vital Signs/Narrative: Vital Signs Temp Pulse Resp BP Pulse Ox 07/24/20 14:51 97.0 F L 96 20 H 134/92 H 93 Inital Vital Signs reviewed: Yes General: Well nourished, Well developed, No Acute Distress Head: Normocephalic, Atraumatic Eyes: Perrl, - - Severe right cataract which patient has no vision out of chronically. ENT: Moist mucous membranes, No rhinorrhea Neck: Supple, Nontender Cardiovascular: Regular rate, Regular rhythm, No murmurs Respiratory: No distress, CTA bilaterally, Chest nontender Abdomen: Soft, Nontender, Nondistended, Normal bowel sounds Back: Nontender, Normal Inspection Extremities: Nontender, No edema Skin: Normal color, No rash Neurological: Alert, Oriented x3, Cranial nerves II-XII grossly intact, Normal Strength, Normal Sensation Psychological: Normal affect, Normal Mood Diagnostic/Tx/Re-eval Clinical Impression(s) from Imaging Studies Brain CT 07/24/20 14:57 IMPRESSION: Chronic involutional changes of the brain. Electronically Signed: Omega Marie MD at 15:52 EDT , Service support , Lumbar Spine CT 07/24/20 14:59 IMPRESSION: Multilevel degenerative changes, as described above. Electronically Signed: Omega Marie MD at 15:54 EDT , Service support , Chest X-Ray 07/24/20 15:45 IMPRESSION: Stable pleural parenchymal changes at the left lung base. Electronically Signed: Omega Marie MD at 16:02 EDT , Service support , Laboratory Data 07/24/20 07/24/20 07/24/20 15:00 15:00 17:09 WBC 10.4 RBC 4.88 Hgb 14.2 Hct 43.3 MCV 88.7 MCH 29.1 MCHC 32.8 RDW Std Deviation 44.3 H RDW Coeff of [place] 13.6 Plt Count 285 MPV 8.6 Immature Gran % (Auto) 1.000 H Neut % (Auto) 77.9 H Lymph % (Auto) 10.5 L [place] % (Auto) 9.1 Eos % (Auto) 1.1 Baso % (Auto) 0.4 Absolute Neuts (auto) 8.1 H Absolute Lymphs (auto) 1.09 Nucleated RBC % 0 Sodium 131 L Potassium 3.9 Chloride 96 L Carbon Dioxide 31.0 Anion Gap 4 L BUN 19 H Creatinine 1.20 Estim Creat Clear Calc 39.93 Est GFR (MDRD) Af Amer 77 Est GFR (MDRD) Non-Af 63 BUN/Creatinine Ratio 15.8 Glucose 127 H Calcium 8.4 L Total Bilirubin 0.40 AST 19 ALT 19 Alkaline Phosphatase 81 Troponin I < 0.015 Total Protein 7.4 Albumin 3.0 L Globulin 4.4 H Albumin/Globulin Ratio 0.7 L Urine Color Yellow Urine Clarity Clear Urine pH 6.0 Ur Specific [place] 1.020 Urine Protein Negative Urine Glucose (UA) Normal Urine Ketones Negative Urine Occult Blood Negative Urine Nitrite Negative Urine Bilirubin Negative Urine Urobilinogen Normal Ur Leukocyte Esterase 100 H Urine RBC 0 SEEN Urine WBC 0-5 SEEN Ur Squamous Epith Cells 0 SEEN Urine Bacteria 0 SEEN Urine Mucus 0 SEEN - Rhythm Strip Rhythm Strip: Sinus Rhythm Rate: 96 Ectopy: None - EKG Initial EKG Interpretation: Sinus Rhythm - Sinus rhythm at 96 bpm. TN interval of 158 ms. QTC of 449 ms. No evidence of acute ST elevation or depression at this time. - Medical Decision Making Appears well and nontoxic. Vital signs within normal limits. No obvious evidence of head injury. Lab work within normal limits. Urine shows no evidence of infection. CT brain negative. Chest x-ray interpreted by myself shows no acute infection or cardiomegaly. Radiology concurs. CT of the lumbar spine shows no acute process. After discussion with the patient and his brother he will be discharged back to nursing facility. Stable at time of discharge. Impression: 1. Fall 2. Back contusion 3. Closed head injury ED Disposition - Plan for ED Patient: Disposition: Home or Assisted Living Instructions: ED Fall with Uncertain Cause Referrals: Rahul Machuca MD [Primary Care Provider] - 2 Days
[2020-07-24 15:12] LABS: Absolute Lymphocyte Count 1.09 X10^3/uL (0.83-4.51); Absolute Neutrophil Count 8.1 X10^3/uL (2.0-7.7); Basophil# 0.04 X10^3/uL; Basophil% 0.4 % (0-1); Eosinophil# 0.11 X10^3/uL; Eosinophils% 1.1 % (0-5); Hematocrit 43.3 % (40-54); Hemoglobin 14.2 g/dL (13.0-16.5); Lymphocyte # 1.09 X10^3/ul (4.0); Lymphocyte % 10.5 % (19-41); Mean Corp Hgb Conc 32.8 g/dL (32-36); Mean Corpuscular Hgb 29.1 pg (27.0-32.0); Mean Corpuscular Volume 88.7 fL (80-94); Mean Platelet Vol. 8.6 fl (6.2-12.0); Monocyte# 0.94 X10^3/uL; Monocyte% 9.1 % (0-10); NRBC Flagged by Analyzer 0 % (0-5); Neutrophil # 8.09 X10^3/uL (2.7-7.7); Neutrophil % 77.9 % (47-70); Platelet Count 285 K/mm3 (150-450); RBC Distribution Width CV 13.6 % (11.6-14.6); RBC Distribution Width SD 44.3 fl (35.1-43.9); Red Blood Count 4.88 M/mm3 (4.6-6.2); White Blood Count 10.4 K/mm3 (4.4-11.0)
[2020-07-24 15:31] LABS: ALB/GLOB Ratio 0.7 RATIO (0.9-2.4); AST(SGOT) 19 U/L (15-37); Alanine Aminotransfer ALT/SGPT 19 U/L (16-61); Alkaline Phosphatase 81 U/L (45-117); Anion Gap 4 (5-15); BUN 19 mg/dL (7-18); BUN/Creat Ratio 15.8 RATIO (10-20); Calcium,Total 8.4 mg/dL (8.5-10.1); Chloride 96 mmol/L (98-107); EST Glomerular Filtration Rate 63 mL/min (>60); Est Glom Filt Rate - Afr Amer 77 mL/min (>60); Estimated Creatinine Clearance 39.93 ml/min; Globulin 4.4 g/dL (2.2-4.2); Glucose 127 mg/dL (74-106); Potassium 3.9 mmol/L (3.5-5.1); Protein, Total 7.4 g/dL (6.4-8.2); Sodium Level 131 mmol/L (136-145)
--- NOTE | 2020-07-24 15:45 | RAD_ITS ---
STUDY: X-RAY CHEST REASON FOR EXAM: Male, 70 years old. Trauma TECHNIQUE: Single AP portable view of the chest. COMPARISON: Comparison is made with prior study dated 11/13/2010. FINDINGS: EKG electrodes are seen. Stable increased markings at the left lung base suggestive of scarring. Blunting of left costophrenic angle. Normal size heart. Normal mediastinum and kelsi. Normal visualized pulmonary arteries. Normal visualized aortic arch and descending thoracic aorta. Normal visualized thoracic spine. Normal visualized ribs, clavicles, and shoulders. There is no demonstrated abnormality of the visualized soft tissue structures of the upper abdomen. RAD/Chest 1 View (Portable) IMPRESSION: Stable pleural parenchymal changes at the left lung base. Electronically Signed: Omega Marie MD at 16:02 EDT , Service support ,
[2020-07-24 15:57] VITALS: O2SAT 98
[2020-07-24 17:14] LABS: Bacteria 0 SEEN /hpf (None Seen); Mucous, Urine 0 SEEN /hpf (<or=2+); Red Blood Cells-Urine 0 SEEN /hpf (0-5); Squamous Epithelial Cells - UA 0 SEEN /hpf (0-5)
[2020-07-24 17:16] LABS: Color, Urine Yellow (Yellow); Glucose, Dipstick Normal (Normal); Ketone-Dipstick Negative (Negative); Leukocyte Esterase-Dipstick 100 /ul (Negative); Nitrite-Dipstick Negative (Negative); Occult Blood-Urine Negative /ul (Negative); Protein-Dipstick Negative (Negative); Urine Bilirubin Dipstick Negative (Negative); Urine Clarity Clear (Clear); Urine Urobilinogen Normal (Normal)
[2020-07-24 17:21] LABS: White Blood Cells 0-5 SEEN /hpf (0-5)
[2020-07-24 17:56] VITALS: BP 127/86; PULSE 101; RESP 17; RESP 18; O2SAT 96
[2020-07-24 19:18] VITALS: BP 152/96; PULSE 103; RESP 16; O2SAT 97
== END 2020-07-24 20:31 | disposition home or self-care (01) ==
PROVIDERS: Emergency Provider Emergency Medicine; PCP Family Medicine
DX: S20.229A Contusion of unspecified back wall of thorax, initial encounter (principal); S09.90XA Unspecified injury of head, initial encounter; J44.9 Chronic obstructive pulmonary disease, unspecified; I10 Essential (primary) hypertension; F03.90 Unspecified dementia, unspecified severity, without behavioral disturbance, psychotic disturbance, mood disturbance, and anxiety; W19.XXXA Unspecified fall, initial encounter; Z79.899 Other long term (current) drug therapy
CPT/HCPCS: 70450; 71045; 72131; 80053; 81001; 84484; 85025; 93005; 96360; 96361; 99285

== ENCOUNTER 2020-07-26 07:19 | Emergency (ER) | payer MEDICARE, MEDICAID, SELFPAY ==
[2020-07-26] VITALS (12 sets, daily range): BP systolic 133–176; BP diastolic 81–94; PULSE 73–94; RESP 18–23; TEMP 36.6–37.1; O2SAT 88–97; BMI 28.0
--- NOTE | 2020-07-26 07:57 | ED.DCSUM_ITS ---
History of Present Illness Chief Complaint: Shortness of Breath Informant: Patient Narrative: 70-year-old male with history of COPD presenting with shortness of breath. Patient is a poor historian. Apparently patient had shortness of breath yesterday and had outpatient chest x-ray which showed bilateral pulmonary infiltrates at the bases. He was started on Levaquin. This morning he had shortness of breath and required breathing treatments. Apparently he was started on oxygen yesterday at either 2 to 3 L. Patient required 12 L at the half-way and received breathing treatments and was sent to the ER. On EMS arrival they did put him on nasal cannula and he is maintaining his saturations. He denies any chest pain. He denies fever. He states he was recently here for a fall and was evaluated and was sent back. Past Medical History - Allergies and Home Meds Allergies/Adverse Reactions: Allergies No Known Allergies Allergy (Verified 07/24/20 15:00) Primary Care Physician: Rahul Machuca MD [NON-STAFF] - Prior records reviewed: Yes Past Medical History: - - Hypertension, GERD, schizoaffective disorder, PE, s easonal allergies, BPH, COPD Surgical History: noncontributory Lives: [facility] Smoking Status: Unknown if ever smoked Alcohol: None Drugs: None Review of Systems General: Reports: Malaise. Denies: Chills, Fever, Sweats Eyes: Denies: Visual changes - bilaterally, Diplopia ENT: Denies: Rhinorrhea, Sore throat Cardiovascular: Denies: Chest pain, Palpitations Respiratory: Reports: Dyspnea, Cough Gastrointestinal: Denies: Abdominal pain, Nausea, Vomiting Genitourinary: Denies: Dysuria, Hematuria Musculoskeletal: Denies: Myalgias, Arthralgias, Neck pain Skin: Denies: Rash, Abscess Neurological: Denies: Headache, Weakness, Parasthesia, Numbness Psych: Denies: Depression, Anxiety Physical Exam Vital Signs/Narrative: Vital Signs Temp Pulse Resp BP Pulse Ox 07/26/20 07:23 98.7 F 81 21 H 133/83 H 96 07/26/20 07:20 98.7 F 81 21 H 133/83 H 96 Inital Vital Signs reviewed: Yes General: Well nourished, No Acute Distress Head: Normocephalic, Atraumatic Eyes: Perrl, EOMI ENT: Moist mucous membranes, No rhinorrhea Neck: Supple, Nontender, No lymphadenopathy Cardiovascular: Regular rate, Regular rhythm Respiratory: No distress, CTA bilaterally Abdomen: Soft, Nontender, Nondistended Extremities: Nontender, No edema Skin: Normal color, No rash. Negative for: Cyanosis, Diaphoresis, Jaundice Neurological: Alert, Cranial nerves II-XII grossly intact Psychological: Normal affect, Normal Mood Diagnostic/Tx/Re-eval Clinical Impression(s) from Imaging Studies Chest X-Ray 07/26/20 08:40 IMPRESSION: Stable increased markings at the left lung base with blunting of the left costo phrenic angle in keeping with scarring. Electronically Signed: Omega Marie MD at 9:06 EDT , Service support , Chest CT 07/26/20 11:02 IMPRESSION: Minimal increased markings at the left lung base suggestive of scarring with focal calcific pleural plaque in the posterior medial aspect of the left hemithorax. Electronically Signed: Omega Marie MD at 11:36 EDT , Service support , Laboratory Data 07/26/20 07/26/20 07/26/20 07:50 07:50 07:50 WBC 7.4 RBC 4.59 L Hgb 13.3 Hct 41.4 MCV 90.2 MCH 29.0 MCHC 32.1 RDW Std Deviation 45.8 H RDW Coeff of Smith 13.8 Plt Count 253 MPV 9.4 Immature Gran % (Auto) 0.300 Neut % (Auto) 72.0 H Lymph % (Auto) 11.1 L [place] % (Auto) 10.7 H Eos % (Auto) 5.4 H Baso % (Auto) 0.5 Absolute Neuts (auto) 5.3 Absolute Lymphs (auto) 0.82 L Nucleated RBC % 0 Sodium 131 L Potassium 4.0 Chloride 97 L Carbon Dioxide 30.0 Anion Gap 4 L BUN 16 Creatinine 1.04 Estim Creat Clear Calc 56.67 Est GFR (MDRD) Af Amer 90 Est GFR (MDRD) Non-Af 75 BUN/Creatinine Ratio 15.4 Glucose 121 H Lactic Acid Calcium 8.7 Total Bilirubin 1.00 AST 11 L ALT 14 L Alkaline Phosphatase 73 Troponin I < 0.015 B-Natriuretic Peptide 121.5 H Total Protein 7.5 Albumin 2.9 L Globulin 4.6 H Albumin/Globulin Ratio 0.6 L COVID-19 ([facility]EKA) 07/26/20 07/26/20 08:32 11:20 WBC RBC Hgb Hct MCV MCH MCHC RDW Std Deviation RDW Coeff of Smith Plt Count MPV Immature Gran % (Auto) Neut % (Auto) Lymph % (Auto) [place] % (Auto) Eos % (Auto) Baso % (Auto) Absolute Neuts (auto) Absolute Lymphs (auto) Nucleated RBC % Sodium Potassium Chloride Carbon Dioxide Anion Gap BUN Creatinine Estim Creat Clear Calc Est GFR (MDRD) Af Amer Est GFR (MDRD) Non-Af BUN/Creatinine Ratio Glucose Lactic Acid 0.7 Calcium Total Bilirubin AST ALT Alkaline Phosphatase Troponin I B-Natriuretic Peptide Total Protein Albumin Globulin Albumin/Globulin Ratio COVID-19 ([facility]EKA) Not Detected - Medical Decision Making 70-year-old male presenting with shortness of breath noted earlier this morning. It was reported that he had to be on 12 L at his facility. Patient has been stable on nasal cannula here. He was weaned down to 1 L and maintain saturations at 95%. Patient's lungs are clear to auscultation and he is not tachypneic. He appears alert and oriented. After review of his blood work from the outside facility he had a white blood cell count of 10. His chest x-ray was read as bilateral lower lobe infiltrates on his outpatient chest x-ray however today in the emergency room I interpret his chest x-ray as no acute cardiopulmonary process and radiology does agree. Given that the patient now has a white blood cell count of 7 and he is lymphopenic I did check a rapid antigen which was negative. I obtained CT imaging of the chest which was negat kameron for acute findings. While awaiting these results I did do a rapid PCR as the patient was desatting into the upper 80s and specifically 88%. We were able to eventually contact the nursing facility who stated that he uses oxygen as needed and this is chronic. He personally states he normally wears about 3 L. Renal function appears normal. Sodium was slightly low at 131. I do not believe this needs correcting. [employer] is slightly elevated however patient has no lower extremity edema and has no findings of CHF on his chest x-ray or CT. patient's PCR was negative. At this point since we are able to contact the facility and noted that he has oxygen set up for him there I believe he is safe to be discharged home. Impression: 1. Dyspnea ED Disposition - Plan for ED Patient: Disposition: Home or Assisted Living Instructions: ED Dyspnea Referrals: Rahul Machuca MD [NON-STAFF] -
[2020-07-26 08:31] LABS: Absolute Lymphocyte Count 0.82 X10^3/uL (0.83-4.51); Absolute Neutrophil Count 5.3 X10^3/uL (2.0-7.7); Basophil# 0.04 X10^3/uL; Basophil% 0.5 % (0-1); Eosinophils% 5.4 % (0-5); Hematocrit 41.4 % (40-54); Hemoglobin 13.3 g/dL (13.0-16.5); Lymphocyte # 0.82 X10^3/ul (4.0); Lymphocyte % 11.1 % (19-41); Mean Corp Hgb Conc 32.1 g/dL (32-36); Mean Corpuscular Volume 90.2 fL (80-94); Mean Platelet Vol. 9.4 fl (6.2-12.0); Monocyte# 0.79 X10^3/uL; Monocyte% 10.7 % (0-10); NRBC Flagged by Analyzer 0 % (0-5); Neutrophil # 5.31 X10^3/uL (2.7-7.7); Platelet Count 253 K/mm3 (150-450); RBC Distribution Width CV 13.8 % (11.6-14.6); RBC Distribution Width SD 45.8 fl (35.1-43.9); Red Blood Count 4.59 M/mm3 (4.6-6.2); White Blood Count 7.4 K/mm3 (4.4-11.0)
--- NOTE | 2020-07-26 08:40 | RAD_ITS ---
STUDY: X-RAY CHEST REASON FOR EXAM: Male, 70 years old. Cough TECHNIQUE: Single AP portable view of the chest. COMPARISON: Comparison is made with prior study dated 07/24/2020. FINDINGS: EKG electrodes are seen. Stable increased markings at the left lung base with blunting of the left phrenic angle and compared with the scarring. Normal size heart. Normal mediastinum and kelsi. Normal visualized pulmonary arteries. Normal visualized aortic arch and descending thoracic aorta. Normal visualized thoracic spine. Healed bilateral rib fractures. There is no demonstrated abnormality of the visualized soft tissue structures of the upper abdomen. RAD/Chest 1 View (Portable) IMPRESSION: Stable increased markings at the left lung base with blunting of the left costo phrenic angle in keeping with scarring. Electronically Signed: Omega Marie MD at 9:06 EDT , Service support ,
[2020-07-26 08:52] LABS: ALB/GLOB Ratio 0.6 RATIO (0.9-2.4); AST(SGOT) 11 U/L (15-37); Alanine Aminotransfer ALT/SGPT 14 U/L (16-61); Albumin, Serum 2.9 g/dL (3.2-5.0); Alkaline Phosphatase 73 U/L (45-117); Anion Gap 4 (5-15); BNP,B-Type NATRIURETIC PEPTIDE 121.5 pg/mL (0-100); BUN 16 mg/dL (7-18); BUN/Creat Ratio 15.4 RATIO (10-20); Calcium,Total 8.7 mg/dL (8.5-10.1); Chloride 97 mmol/L (98-107); Creatinine, Serum 1.04 mg/dL (0.70-1.30); EST Glomerular Filtration Rate 75 mL/min (>60); Est Glom Filt Rate - Afr Amer 90 mL/min (>60); Estimated Creatinine Clearance 56.67 ml/min; Globulin 4.6 g/dL (2.2-4.2); Glucose 121 mg/dL (74-106); Protein, Total 7.5 g/dL (6.4-8.2); Sodium Level 131 mmol/L (136-145)
[2020-07-26 09:06] LABS: Lactic Acid 0.7 mmol/L (0.4-1.9)
--- NOTE | 2020-07-26 11:02 | CT_ITS ---
STUDY: CT CHEST WITHOUT CONTRAST REASON FOR EXAM: Male, 70 years old. Shortness of breath RADIATION DOSAGE (If Supplied By Facility): CTDIvol = ( 16.24 ) mGy, DLP = ( 531.71 ) mGycm TECHNIQUE: Transaxial imaging was performed without the administration of intravenous contrast material. Multiplanar coronal and sagittal images were reformatted. Individualized dose optimization techniques were used for this CT. COMPARISON: Comparison is made with prior study of 10/01/2010. FINDINGS: Minimal increased markings at the left lung base suggests of scarring. Focal calcific left pleural plaque. There are calcifications of the coronary arteries. There are multiple small lymph nodes within the mediastinum, which are normal in size and morphology most compatible with reactive lymph hyperplasia. Normal hilar regions. Normal unenhanced pulmonary arteries. Normal aorta arch and descending thoracic aorta. Normal osseous structures. Small hiatal hernia. CT/Chest without Contrast IMPRESSION: Minimal increased markings at the left lung base suggestive of scarring with focal calcific pleural plaque in the posterior medial aspect of the left hemithorax. Electronically Signed: Omega Marie MD at 11:36 EDT , Service support ,
--- NOTE | 2020-07-26 15:24 | ED.RN ---
attempted to call report to residential. no answer. left a message. will try again.
--- NOTE | 2020-07-26 15:30 | ED.RN ---
called patients brother Blaze and updated him on patients status and going back to the [facility].
== END 2020-07-26 15:50 | disposition home or self-care (01) ==
PROVIDERS: Emergency Provider Student in an Organized Health Care Education/Training Program; PCP Family Medicine
DX: R06.00 Dyspnea, unspecified (principal); J44.9 Chronic obstructive pulmonary disease, unspecified; I10 Essential (primary) hypertension; K21.9 Gastro-esophageal reflux disease without esophagitis; Z79.899 Other long term (current) drug therapy
CPT/HCPCS: 36415; 71045; 71250; 80053; 83605; 83880; 84484; 85025; 87040; 87426; 87635; 99285; A4216; U0002